=== PATIENT | male | born 1955 | race Caucasian/White ===

== ENCOUNTER 2016-11-18 08:08 | Emergency (ER) | payer SELFPAY ==
[~2016-11-18] VITALS: Ht 177.8 cm; Wt 79.3 kg
[~2016-11-18 08:08] MED LIST: MOBI15TA PO
[2016-11-18 08:12] VITALS: BP 198/106; PULSE 75; RESP 18; TEMP 98; O2SAT 97
[2016-11-18] MEDS ORDERED: PRIL20TA2 PO (08:24)
--- NOTE | 2016-11-18 08:33 | PD ---
HPI Chief Complaint: Complaint Time Seen by Provider: 08:19 Travel History International Travel<30 days: No Contact w/Intl Traveler<30days: No Traveled to known affect area: No History of Present Illness HPI This 61-year-old male complaining of trouble urinating. He says been having trouble for about 3 months. He has to urinate frequently and frequently has small amounts. He has to strain to urinate. He has to strain so much that sometimes he was not a bowel movement at the same time and he has had occasional bleeding from his rectum and he does have some external hemorrhoids. He has never seen a urologist. He is not aware of fever or chills. Is not aware of any kidney trouble. He has to get up at night frequently to urinate PFSH Past Medical History Medical History: Denies Significant Hx Diminished Hearing: No Past Surgical History Appendectomy: Yes Social History Alcohol Use: Yes (daily) Tobacco Use: Yes (1 ppd) Substance Use: Yes (ETOH) Allergies-Medications (Allergen,Severity, Reaction): Coded Allergies: No Known Allergies (Unverified , 11/18/16) Reported Meds & Prescriptions Reported Meds & Active Scripts Active Flomax (Tamsulosin HCl) 0.4 Mg Cap 0.4 Mg PO HS 30 Days Reported Prilosec (Omeprazole Magnesium) 20 Mg Tab 1 Cap PO DAILY Review of Systems General / Constitutional: No: Fever, Chills Eyes: No: Diploplia, Blurred Vision HENT: No: Headaches, Vertigo Cardiovascular: No: Chest Pain or Discomfort, Palpitations Respiratory: No: Cough, Shortness of Breath Gastrointestinal: No: Nausea, Vomiting Genitourinary: Positive: Urgency, Frequency, Dysuria, Nocturia, Decreased Urinary Output, Hesitancy, Dribbling, No: Hematuria Skin: No Rash, No Itching Neurologic: No: Weakness Psychiatric: No: Anxiety Endocrine: No: Heat Intolerance Physical Exam Narrative GENERAL: Well-developed male SKIN: Focused skin assessment warm/dry. HEAD: Atraumatic. Normocephalic. EYES: Pupils equal and round. No scleral icterus. No injection or drainage. ENT: No nasal bleeding or discharge. Mucous membranes pink and moist. NECK: Trachea midline. No JVD. CARDIOVASCULAR: Regular rate and rhythm. No murmur appreciated. RESPIRATORY: No accessory muscle use. Clear to auscultation. Breath sounds equal bilaterally. GASTROINTESTINAL: Abdomen soft, non-tender, nondistended. Hepatic and splenic margins not palpable. There is some suprapubic tenderness Rectal exam there are some external hemorrhoids which are not bleeding. His prostate is quite enlarged and is firm. MUSCULOSKELETAL: No obvious deformities. No clubbing. No cyanosis. No edema. NEUROLOGICAL: Awake and alert. No obvious cranial nerve deficits. Motor grossly within normal limits. Normal speech. PSYCHIATRIC: Appropriate mood and affect; insight and judgment normal. Data Data Last Documented VS Vital Signs Date Time Temp Pulse Resp B/P (MAP) Pulse Ox O2 Delivery O2 Flow Rate FiO2 11/18/16 09:34 11/18/16 09:20 74 18 98 Room Air 11/18/16 08:12 98.0 Orders Orders Complete Blood Count With Diff (11/18/16 08:28) Basic Metabolic Panel (Bmp) (11/18/16 08:28) Urinalysis - C+S If Indicated (11/18/16 08:28) Bladder Scan PRN (11/18/16 08:28) Mandatory Outpatient Referral (11/18/16 09:20) Labs Laboratory Tests Test 11/18/16 08:50 11/18/16 09:00 White Blood Count 7.8 TH/MM3 Red Blood Count 4.64 MIL/MM3 Hemoglobin 14.5 GM/DL Hematocrit 44.0 % Mean Corpuscular Volume 94.9 FL Mean Corpuscular Hemoglobin 31.2 PG Mean Corpuscular Hemoglobin Concent 32.9 % Red Cell Distribution Width 12.9 % Platelet Count 297 TH/MM3 Mean Platelet Volume 8.8 FL Neutrophils (%) (Auto) 69.1 % Lymphocytes (%) (Auto) 19.7 % Monocytes (%) (Auto) 8.4 % Eosinophils (%) (Auto) 1.6 % Basophils (%) (Auto) 1.2 % Neutrophils # (Auto) 5.4 TH/MM3 Lymphocytes # (Auto) 1.5 TH/MM3 Monocytes # (Auto) 0.7 TH/MM3 Eosinophils # (Auto) 0.1 TH/MM3 Basophils # (Auto) 0.1 TH/MM3 CBC Comment DIFF FINAL Differential Comment Blood Urea Nitrogen 13 MG/DL Creatinine 0.94 MG/DL Random Glucose 112 MG/DL Calcium Level 8.7 MG/DL Sodium Level 141 MEQ/L Potassium Level 3.6 MEQ/L Chloride Level 106 MEQ/L Carbon Dioxide Level 29.1 MEQ/L Anion Gap 6 MEQ/L Estimat Glomerular Filtration Rate 81 ML/MIN Urine Collection Type CLEAN CATCH Urine Color YELLOW Urine Turbidity CLEAR Urine pH 6.5 Urine Specific [place] 1.005 Urine Protein NEG mg/dL Urine Glucose (UA) NEG mg/dL Urine Ketones NEG mg/dL Urine Occult Blood NEG Urine Nitrite NEG Urine Bilirubin NEG Urine Leukocyte Esterase NEG Urine WBC 0-2 /hpf Microscopic Urinalysis Comment CULT NOT INDICATED MDM Medical Decision Making Medical Screen Exam Complete: Yes Emergency Medical Condition: Yes Medical Record Reviewed: Yes Differential Diagnosis Differential includes BPH, UTI, prostate cancer, urinary retention Narrative Course Bladder scan shows that the bladder is distended and about 850 mls after urination. I spent some time explaining to patient that we should insert a catheter to drain his bladder and he is refusing. Blood work shows good kidney function. His urine is not infected. This is most likely BPH to bladder cancer cannot be excluded. I have explained this to the patient and stressed the importance of follow-up. He'll be started on Flomax and he will be released. He has been instructed to return if unable to urinate for catheter at that time Diagnosis Primary Impression: Urinary retention Additional Impression: Prostatic enlargement Scripts Tamsulosin (Flomax) 0.4 Mg Cap 0.4 MG PO HS for Manage Prostate Problems for 30 Days, #30 CAP 0 Refills Prov: Juan M Russ MD 11/18/16 Disposition: 01 DISCHARGE HOME Condition: Stable Juan M Russ MD Nov 18, 2016 08:33
[2016-11-18 09:00] LABS: AUTOMATED NEUTROPHIL # 5.4 TH/MM3 (1.8-7.7); BASOPHIL # 0.1 TH/MM3 (0-0.2); BASOPHIL % 1.2 % (0.0-2.0); EOSINOPHIL # 0.1 TH/MM3 (0-0.4); EOSINOPHIL % 1.6 % (0.0-4.0); HEMO FLAGS DIFF FINAL; LYMPH % 19.7 % (9.0-44.0); LYMPHOCYTE # 1.5 TH/MM3 (1.0-4.8); MEAN CELL VOLUME 94.9 FL (80.0-100.0); MEAN CORPUSCULAR HEMOGLOBIN 31.2 PG (27.0-34.0); MEAN CORPUSCULAR HGB CONC 32.9 % (32.0-36.0); MONO % 8.4 % (0.0-8.0); NEUT % 69.1 % (16.0-70.0); PLATELET COUNT 297 TH/MM3 (150-450); RED BLOOD COUNT 4.64 MIL/MM3 (4.50-5.90); RED CELL DISTRIBUTION WIDTH 12.9 % (11.6-17.2); WHITE BLOOD COUNT 7.8 TH/MM3 (4.0-11.0)
[2016-11-18 09:07] LABS: POTASSIUM 3.6 MEQ/L (3.5-5.1)
[2016-11-18 09:09] LABS: BLOOD, URINE NEG (NEG); GLUCOSE,URINE NEG (NEG); KETONE, URINE NEG (NEG); NITRITE,URINE NEG (NEG); PH, URINE 6.5 (5.0-8.5)
[2016-11-18 09:12] LABS: BICARBONATE 29.1 MEQ/L (21.0-32.0)
[2016-11-18 09:14] LABS: METHOD OF COLLECTION CLEAN CATCH; URINE COLOR YELLOW (YELLW/STRAW)
[2016-11-18 09:15] LABS: COMMENT (UR) CULT NOT INDICATED; CULTURE IF INDICATED CULT NOT INDICATED; WBC, URINE 0-2 /hpf (0-5)
[2016-11-18] MEDS ORDERED: TAMS5CAP PO (09:19)
[2016-11-18 09:20] VITALS: BP 184/99; PULSE 74; RESP 18; O2SAT 98
== END 2016-11-18 09:35 | disposition home or self-care (01) ==
LOC: PHED 08:08
DX: R33.9 Retention of urine, unspecified (principal); N40.1 Benign prostatic hyperplasia with lower urinary tract symptoms; F17.210 Nicotine dependence, cigarettes, uncomplicated; K64.4 Residual hemorrhoidal skin tags
CPT/HCPCS: 51798; 80048; 81001; 85025

== ENCOUNTER 2016-12-12 16:25 | Inpatient (IN) | payer SELFPAY ==
[~2016-12-12] VITALS: Ht 177.8 cm; Wt 79.7 kg
[~2016-12-12 16:25] MED LIST changes: -MOBI15TA PO; +PRIL20TA2 PO; +TAMS5CAP PO
[2016-12-12 16:33] VITALS: BP 218/101; PULSE 77; RESP 16; TEMP 98.6; O2SAT 99
[2016-12-12] MEDS ORDERED: SODIUM CHLORIDE 0.9% FLUSH 10 ML FLUSH IV FLUSH PRN ×3 (16:45→23:15)
[2016-12-12 16:55] VITALS: O2SAT 99
--- NOTE | 2016-12-12 17:03 | PD ---
HPI Chief Complaint: Edema Time Seen by Provider: 16:45 Travel History International Travel<30 days: No Contact w/Intl Traveler<30days: No Traveled to known affect area: No History of Present Illness HPI 61-year-old male here for evaluation of bilateral lower extremity edema, scrotal and penile swelling. The patient reports that he was here earlier this month for urinary retention and was told that he has an enlarged prostate. He was advised that a Hogn catheter should be placed at that time, however he refused. He was given Flomax and reports that he is having no issues with urinating. He reports that since then he has noted scrotal and penile swelling as well as bilateral lower extremity edema. Symptoms seem to be worsening at times and then improving at times. He denies scrotal pain. He denies chest pain or dyspnea. No history of cardiopulmonary disease or CHF. He does admit to drinking a moderate amount of alcohol daily, and has done so since his 20s. PFSH Past Medical History Hx Anticoagulant Therapy: No Diabetes: No Diminished Hearing: No Past Surgical History Appendectomy: Yes Social History Alcohol Use: Yes (daily) Tobacco Use: Yes (1 ppd) Substance Use: Yes (ETOH) Allergies-Medications (Allergen,Severity, Reaction): Coded Allergies: No Known Allergies (Unverified Allergy, Unknown, 12/12/16) Reported Meds & Prescriptions Reported Meds & Active Scripts Active Flomax (Tamsulosin HCl) 0.4 Mg Cap 0.4 Mg PO HS 30 Days Reported Prilosec (Omeprazole Magnesium) 20 Mg Tab 1 Cap PO DAILY Review of Systems Except as stated in HPI: all other systems reviewed are Neg Physical Exam Narrative GENERAL: Well-developed, well-nourished, comfortable, no apparent distress. SKIN: Focused skin assessment warm/dry. HEAD: Atraumatic. Normocephalic. EYES: Pupils equal and round. Mild scleral icterus. No injection or drainage. ENT: No nasal bleeding or discharge. Mucous membranes pink and moist. NECK: Trachea midline. No JVD. CARDIOVASCULAR: Regular rate and rhythm. No murmur appreciated. RESPIRATORY: No accessory muscle use. Clear to auscultation. Breath sounds equal bilaterally. GASTROINTESTINAL: Abdomen soft, non-tender, nondistended. : Moderate scrotal and penile edema without masses, without tenderness, without skin color changes, without obvious hernia. MUSCULOSKELETAL: No obvious deformities. No clubbing. No cyanosis. Mild bilateral lower extremity edema from foot to thigh. NEUROLOGICAL: Awake and alert. No obvious cranial nerve deficits. Motor grossly within normal limits. Normal speech. PSYCHIATRIC: Appropriate mood and affect; insight and judgment normal. Data Data Last Documented VS Vital Signs Date Time Temp Pulse Resp B/P (MAP) Pulse Ox O2 Delivery O2 Flow Rate FiO2 12/12/16 21:05 100.8 83 20 189/92 (124) 95 12/12/16 16:55 Room Air Orders Orders Complete Blood Count With Diff (12/12/16 16:45) Comprehensive Metabolic Panel (12/12/16 16:45) Lipase (12/12/16 16:45) Prothrombin Time / Inr (Pt) (12/12/16 16:45) Act Partial Throm Time (Ptt) (12/12/16 16:45) Urinalysis - C+S If Indicated (12/12/16 16:45) Iv Access Insert/Monitor (12/12/16 16:45) Ecg Monitoring (12/12/16 16:45) Oximetry (12/12/16 16:45) Sodium Chloride 0.9% Flush (Ns Flush) (12/12/16 16:45) B-Type Natriuretic Peptide (12/12/16 16:45) Ct Abd/Pel W/O Iv Contrast (12/12/16 ) Potassium Chloride (Kcl) (12/12/16 18:15) Spironolactone (Aldactone) (12/12/16 18:15) Urinary Catheter Insert/Apply (12/12/16 20:00) Lidocaine 2% Jelly (Xylocaine 2% Jelly) (12/12/16 20:30) Morphine Inj (Morphine Inj) (12/12/16 20:30) Morphine Inj (Morphine Inj) (12/12/16 20:30) Prostate Specific Antigen (12/12/16 20:47) Consult Medical Oncology (12/12/16 ) Invasive Rad Dept Consult (12/12/16 21:10) Admit Order (Ed Use Only) (12/12/16 21:11) Labs Laboratory Tests Test 12/12/16 16:54 12/12/16 17:20 12/12/16 20:50 White Blood Count 8.9 TH/MM3 Red Blood Count 4.27 MIL/MM3 Hemoglobin 13.4 GM/DL Hematocrit 40.3 % Mean Corpuscular Volume 94.2 FL Mean Corpuscular Hemoglobin 31.3 PG Mean Corpuscular Hemoglobin Concent 33.3 % Red Cell Distribution Width 12.9 % Platelet Count 223 TH/MM3 Mean Platelet Volume 9.0 FL Neutrophils (%) (Auto) 73.0 % Lymphocytes (%) (Auto) 17.3 % Monocytes (%) (Auto) 7.9 % Eosinophils (%) (Auto) 0.9 % Basophils (%) (Auto) 0.9 % Neutrophils # (Auto) 6.5 TH/MM3 Lymphocytes # (Auto) 1.5 TH/MM3 Monocytes # (Auto) 0.7 TH/MM3 Eosinophils # (Auto) 0.1 TH/MM3 Basophils # (Auto) 0.1 TH/MM3 CBC Comment DIFF FINAL Differential Comment Prothrombin Time 10.5 SEC Prothromb Time International Ratio 1.0 RATIO Activated Partial Thromboplast Time 27.0 SEC Blood Urea Nitrogen 17 MG/DL Creatinine 1.50 MG/DL Random Glucose 90 MG/DL Total Protein 7.8 GM/DL Albumin 3.4 GM/DL Calcium Level 8.8 MG/DL Alkaline Phosphatase 104 U/L Aspartate Amino Transf (AST/SGOT) 23 U/L Alanine Aminotransferase (ALT/SGPT) 23 U/L Total Bilirubin 0.6 MG/DL Sodium Level 141 MEQ/L Potassium Level 2.9 MEQ/L Chloride Level 104 MEQ/L Carbon Dioxide Level 28.0 MEQ/L Anion Gap 9 MEQ/L Estimat Glomerular Filtration Rate 47 ML/MIN B-Type Natriuretic Peptide 182 PG/ML Lipase 129 U/L Urine Color YELLOW Urine Turbidity CLEAR Urine pH 6.0 Urine Specific [place] 1.005 Urine Protein NEG mg/dL Urine Glucose (UA) NEG mg/dL Urine Ketones NEG mg/dL Urine Occult Blood LARGE Urine Nitrite NEG Urine Bilirubin NEG Urine Leukocyte Esterase NEG Urine RBC 0-3 /hpf Urine WBC 0-2 /hpf Urine Squamous Epithelial Cells 0-5 /hpf Microscopic Urinalysis Comment CULT NOT INDICATED MDM Medical Decision Making Medical Screen Exam Complete: Yes Emergency Medical Condition: Yes Medical Record Reviewed: Yes Differential Diagnosis Bilateral lower extremity edema, scrotal edema, hypoalbuminemia, cirrhosis, hepatorenal syndrome, renal insufficiency, fluid retention, CHF unlikely, DVT unlikely, Fourniere's gangrene unlikely, orchitis unlikely Narrative Course Initial vital signs show heart rate 77, blood pressure 218/101, pulse ox 99% on room air, oral temp of 98.6F. CBC is unremarkable. CMP is remarkable for potassium 2.9, creatinine 1.5, GFR 47 which is slightly worse than his baseline, otherwise unremarkable. Lipase is 129. BNP is 182. UA shows large occult blood, otherwise essentially unremarkable, not suggestive of UTI. CT abd/pelvis: CONCLUSION: 1. Retroperitoneal and bilateral external iliac chain adenopathy of concern for metastatic adenopathy versus lymphoma. 2. Moderate bilateral hydronephrosis. 3. Large scrotum with diffuse edema and appearance hydroceles. 4. Nonspecific bowel gas pattern which may represent an ileus. 5. Enlarged prostate gland. The urinary bladder is the upper limits of normal in size. 6. Moderate diverticulosis. Nurse was unable to place a Hong catheter, so I was asked to do this. I placed a 16 [place] coud catheter. After catheter placement, patient put out about 1500 cc of clear urine within 5 minutes. Case discussed with on-call oncologist Dr. Maciel who recommends that I order a PSA and have the patient admitted for biopsy of one of the lymph nodes. Patient was made aware of all findings and plan for admission. Case discussed with hospitalist Dr. Patel who will admit the patient to his service. Procedures Procedure Narrative Hong catheter placement: 2% lidocaine jelly was injected into the urethra for local anesthesia. Under sterile technique a 16 [place] coud catheter was placed. The patient experienced some discomfort with the procedure, however there were no complications. There was return of 1500 cc of clear urine within 5 minutes of catheter placement. Diagnosis Primary Impression: Obstructive uropathy Additional Impressions: Enlarged prostate Lymphadenopathy Scrotal edema Rakesh Castro MD Dec 12, 2016 17:03
[2016-12-12 17:25] LABS: AUTOMATED NEUTROPHIL # 6.5 TH/MM3 (1.8-7.7); BASOPHIL # 0.1 TH/MM3 (0-0.2); BASOPHIL % 0.9 % (0.0-2.0); EOSINOPHIL # 0.1 TH/MM3 (0-0.4); EOSINOPHIL % 0.9 % (0.0-4.0); HEMATOCRIT 40.3 % (39.0-51.0); HEMOGLOBIN 13.4 GM/DL (13.0-17.0); LYMPH % 17.3 % (9.0-44.0); LYMPHOCYTE # 1.5 TH/MM3 (1.0-4.8); MEAN CELL VOLUME 94.2 FL (80.0-100.0); MEAN CORPUSCULAR HEMOGLOBIN 31.3 PG (27.0-34.0); MEAN CORPUSCULAR HGB CONC 33.3 % (32.0-36.0); MONO % 7.9 % (0.0-8.0); MONOCYTE # 0.7 TH/MM3 (0-0.9); PLATELET COUNT 223 TH/MM3 (150-450); RED BLOOD COUNT 4.27 MIL/MM3 (4.50-5.90); RED CELL DISTRIBUTION WIDTH 12.9 % (11.6-17.2); WHITE BLOOD COUNT 8.9 TH/MM3 (4.0-11.0)
[2016-12-12 17:32] LABS: BILIRUBIN, URINE NEG (NEG); BLOOD, URINE LARGE (NEG); GLUCOSE,URINE NEG (NEG); KETONE, URINE NEG (NEG); NITRITE,URINE NEG (NEG); URINE LEUKOCYTE ESTERASE NEG (NEG)
[2016-12-12 17:35] LABS: URINE COLOR YELLOW (YELLW/STRAW)
[2016-12-12 17:35] LABS: PROTHROMBIN TIME - PATIENT 10.5 SEC (9.8-11.6)
[2016-12-12 17:36] LABS: RBC, URINE 0-3 /hpf (0-3); SQUAMOUS EPITHELIAL CELL URINE 0-5 /hpf (0-5); WBC, URINE 0-2 /hpf (0-5)
[2016-12-12 17:43] LABS: ALBUMIN 3.4 GM/DL (3.4-5.0); ALKALINE PHOSPHATASE 104 U/L (45-117); ALT (GPT) 23 U/L (12-78); AST (GOT) 23 U/L (15-37); BLOOD UREA NITROGEN 17 MG/DL (7-18); CALCIUM 8.8 MG/DL (8.5-10.1); CHLORIDE 104 MEQ/L (98-107); GLOMERULAR FILTRATION RATE 47 ML/MIN (>89); GLUCOSE,RANDOM 90 MG/DL (74-106); LIPASE 129 U/L (73-393); SODIUM (NA) 141 MEQ/L (136-145); TOTAL BILIRUBIN ADULT 0.6 MG/DL (0.2-1.0); TOTAL PROTEIN 7.8 GM/DL (6.4-8.2)
[2016-12-12] MEDS ORDERED: SPIRONOLACTONE 25 MG TAB PO ONE (18:15)
[2016-12-12] MEDS ORDERED: SPIRONOLACTONE 50 MG TAB PO ONE (18:15)
[2016-12-12] MEDS ORDERED: POTASSIUM CHLORIDE 20 MEQ CONTROLLED RELEASE TAB PO ONE (18:15)
[2016-12-12 19:33] VITALS: BP 189/98; PULSE 82; RESP 20; TEMP 100.8; O2SAT 94
--- NOTE | 2016-12-12 19:53 | RADRPT ---
EXAM DATE/TIME: 12/12/2016 19:06 [facility] COMPARISON: No previous studies available for comparison. INDICATIONS : Abdominal pain with generalized swelling. ORAL CONTRAST: No oral contrast ingested. RADIATION DOSE: 11.80 CTDIvol (mGy) MEDICAL HISTORY : Enlarged prostate. SURGICAL HISTORY : Appendectomy. ENCOUNTER: Initial ACUITY: 3 weeks PAIN SCALE: 6/10 LOCATION: abdomen TECHNIQUE: Volumetric scanning of the abdomen and pelvis was performed. Using automated exposure control and ad justment of the mA and/or kV according to patient size, radiation dose was kept as low as reasonably achievable to obtain optimal diagnostic quality images. DICOM format image data is available electro nically for review and comparison. FINDINGS: LOWER LUNGS: The visualized lower lungs are clear. LIVER: Homogeneous density without lesion. There is no dilation of the biliary tree. No calcified gall[place] es. SPLEEN: Normal size without lesion. PANCREAS: Within normal limits. KIDNEYS: There is moderate lateral hydronephrosis with dilatation of the calyces and collecting systems as wel l as the ureters down to the level of the bladder. No distinct filling defects or calculi. ADRENAL GLANDS: Within normal limits. VASCULAR: There is no aortic aneurysm. BOWEL/MESENTERY: There is a nonspecific bowel gas pattern with multiple loops of nondilated air-containing small bowel with multiple air-fluid levels. Gas and stool is noted segmentally within the colon. Multiple divert iculi greatest in the sigmoid colon. There is no free air or fluid. There is a small hiatal hernia. ABDOMINAL WALL: Within normal limits. RETROPERITONEUM: There is moderate retroperitoneal adenopathy with multiple lymph nodes in the periaortic region measu ring up to 2.2 cm in diameter. Extends down to the bifurcation. There is also adenopathy along both e xternal iliac chains. BLADDER: No wall thickening or mass. Urinary bladder is at the upper limits of normal in size. REPRODUCTIVE: Scrotum is enlarged with diffuse edema and apparent hydroceles. Prostate gland is diffusely enlarged and measures up to approximately 6 x 5.4 cm. INGUINAL: There is no lymphadenopathy or hernia. MUSCULOSKELETAL: Within normal limits for patient age. CONCLUSION: 1. Retroperitoneal and bilateral external iliac chain adenopathy of concern for metastatic adenopathy versus lymphoma. 2. Moderate bilateral hydronephrosis. 3. Large scrotum with diffuse edema and appearance hydroceles. 4. Nonspecific bowel gas pattern which may represent an ileus. 5. Enlarged prostate gland. The urinary bladder is the upper limits of normal in size. 6. Moderate diverticulosis. Paramjit Burrell MD on December 12, 2016 at 19:45 Board Certified Radiologist. This report was verified electronically.
[2016-12-12] MEDS ORDERED: MORPHINE SULFATE 8 MG/ML INJ IV PUSH ONE (20:30)
[2016-12-12] MEDS ORDERED: LIDOCAINE 2% JELLY 30 ML TUBE TOPICAL ONE (20:30)
[2016-12-12] MEDS ORDERED: MORPHINE SULFATE 4 MG/ML INJ IV PUSH ONE (20:30)
[2016-12-12 21:05] VITALS: BP 189/92; PULSE 83; RESP 20; TEMP 100.8; O2SAT 95
[2016-12-12] MEDS ORDERED: NALOXONE HCL 0.4 MG/ML AMP IV PUSH PRN (21:30)
[2016-12-12] MEDS ORDERED: LACTULOSE SYRUP 20 GM/30 ML CUP PO PRN (21:30)
[2016-12-12] MEDS ORDERED: SENNOSIDES 8.6 MG TAB PO PRN (21:30)
[2016-12-12] MEDS ORDERED: BISACODYL 10 MG SUPP RECTAL PRN (21:30)
[2016-12-12] MEDS ORDERED: ONDANSETRON HCL 4 MG/2 ML VIAL IVP PRN (21:30)
[2016-12-12] MEDS ORDERED: MAGNESIUM HYDROXIDE SUSP 30 ML CUP PO PRN (21:30)
[2016-12-12] MEDS: SODIUM CHLOR 0.45% 1000 ML INJ 1,000 ML IV SCH (22:02)
[2016-12-12 22:15] LABS: MAGNESIUM 2.8 MG/DL (1.5-2.5)
[2016-12-12 22:23] VITALS: BP 167/92; TEMP 100
[2016-12-12 22:30] VITALS: BP 177/109; PULSE 69; RESP 20; TEMP 97; O2SAT 98
[2016-12-12] MEDS ORDERED: LORazepam 2 MG TAB PO PRN (23:15)
[2016-12-12] MEDS ORDERED: cloNIDine HCL 0.1 MG TAB PO ONE (23:15)
[2016-12-12] MEDS ORDERED: LORazepam 2 MG/ML VIAL IV PUSH PRN ×4 (23:15)
[2016-12-12] MEDS ORDERED: FLUMAZENIL 0.5 MG/5 ML VIAL IV PUSH PRN (23:15)
[2016-12-13] MEDS ORDERED: BELLADONNA ALKALOIDS/OPIUM 60 MG SUPP RECTAL ONE ×2 (01:15→22:45)
[2016-12-13 04:00] VITALS: BP 158/92; PULSE 67; RESP 20; TEMP 98.5; O2SAT 95
[2016-12-13 06:35] LABS: CHLORIDE 106 MEQ/L (98-107); SODIUM (NA) 142 MEQ/L (136-145)
[2016-12-13 06:41] LABS: ALBUMIN 2.9 GM/DL (3.4-5.0); BICARBONATE 29.9 MEQ/L (21.0-32.0); BLOOD UREA NITROGEN 15 MG/DL (7-18); CALCIUM 8.3 MG/DL (8.5-10.1); GLUCOSE,RANDOM 99 MG/DL (74-106)
[2016-12-13 06:42] LABS: AUTOMATED NEUTROPHIL # 5.6 TH/MM3 (1.8-7.7); BASOPHIL % 0.6 % (0.0-2.0); EOSINOPHIL # 0.1 TH/MM3 (0-0.4); EOSINOPHIL % 1.4 % (0.0-4.0); HEMATOCRIT 38.9 % (39.0-51.0); HEMOGLOBIN 12.9 GM/DL (13.0-17.0); LYMPH % 17.2 % (9.0-44.0); LYMPHOCYTE # 1.3 TH/MM3 (1.0-4.8); MEAN CELL VOLUME 94.6 FL (80.0-100.0); MEAN CORPUSCULAR HEMOGLOBIN 31.5 PG (27.0-34.0); MEAN CORPUSCULAR HGB CONC 33.3 % (32.0-36.0); MONOCYTE # 0.7 TH/MM3 (0-0.9); NEUT % 71.8 % (16.0-70.0); PLATELET COUNT 226 TH/MM3 (150-450); RED BLOOD COUNT 4.11 MIL/MM3 (4.50-5.90); RED CELL DISTRIBUTION WIDTH 13.1 % (11.6-17.2); WHITE BLOOD COUNT 7.7 TH/MM3 (4.0-11.0)
[2016-12-13 06:44] LABS: ALT (GPT) 20 U/L (12-78); AST (GOT) 16 U/L (15-37); GLOMERULAR FILTRATION RATE 56 ML/MIN (>89)
[2016-12-13 06:46] LABS: TOTAL BILIRUBIN ADULT 0.8 MG/DL (0.2-1.0); TOTAL PROTEIN 6.7 GM/DL (6.4-8.2)
[2016-12-13 06:47] LABS: ALKALINE PHOSPHATASE 90 U/L (45-117)
[2016-12-13 07:50] VITALS: BP 178/95; PULSE 64; RESP 20; TEMP 97.6; O2SAT 94
[2016-12-13] MEDS ORDERED: SODIUM CHLORIDE 0.9% FLUSH 10 ML FLUSH IV FLUSH SCH (09:00)
[2016-12-13] MEDS: FOLIC ACID 1 MG TAB PO SCH (10:44)
[2016-12-13] MEDS: PANTOPRAZOLE SOD 20 MG DELAYED RELEASE TAB PO SCH (10:44)
[2016-12-13] MEDS: THIAMINE HCL 100 MG TAB PO SCH (10:44)
[2016-12-13] MEDS: MULTIVITAMINS/MINERALS THERAPEUTIC TAB PO SCH (10:44)
[2016-12-13] MEDS: SODIUM CHLORIDE 0.9% FLUSH 10 ML FLUSH IV FLUSH SCH ×2 (10:45→20:41)
[2016-12-13 11:50] VITALS: BP 189/93; PULSE 67; RESP 20; TEMP 98.7; O2SAT 93
[2016-12-13] MEDS ORDERED: POTASSIUM CHLORIDE 10 MEQ CONTROLLED RELEASE TAB PO ONE (12:15)
--- NOTE | 2016-12-13 12:21 | HHI.HP ---
[facility] Service [facility] Primary Care Physician No Primary Care Physician Admission Diagnosis obstructive uropathy, enlarged prostate, lymphadenopathy Diagnoses: Chief Complaint: Decreased urine output Travel History International Travel<30 Days: No Contact w/Intl Traveler <30 Da: No Traveled to Known Affected Are: No History of Present Illness This patient is a very pleasant 61-year-old gentleman with minimal past medical history is come to the hospital with 3 weeks of decreased urine output proceeded by 4 months of urinary frequency. He reports over the last 2 weeks his bladder has not emptied fully. He finally came to the emergency room with increased scrotal and penile swelling and discomfort. A catheter was placed in the emergency room and 1.5 L of urine was obtained. Patient has since developed hematuria. He did have CT abdomen pelvis done which did show some prostatic enlargement with pelvic lymphadenopathy concerning for malignancy. Reports no history of malignancy personally but his brother had some sort of cancer that he at age 47. He notes no fevers or chills. He has not lost any weight and he denies any joint or back pain. Patient been admitted to the hospital for further evaluation and treatment Review of Systems Constitutional: DENIES: Diaphoretic episodes, Fatigue, Fever, Weight gain, Weight loss, Chills, Dizziness, Change in appetite, Night Sweats Endocrine: DENIES: Heat/cold intolerance, Polydipsia, Polyuria, Polyphagia Eyes: DENIES: Blurred vision, Diplopia, Eye inflammation, Eye pain, Vision loss , Photosensitivity, Double Vision Ears, nose, mouth, throat: DENIES: Tinnitus, Hearing loss, Vertigo, Nasal discharge, Oral lesions, Throat pain, Hoarseness, Ear Pain, Running Nose, Epistaxis, Sinus Pain, Toothache, Odynophagia Respiratory: DENIES: Apneas, Cough, Snoring, Wheezing, Hemoptysis, Sputum production, Shortness of breath Cardiovascular: DENIES: Chest pain, Palpitations, Syncope, Dyspnea on Exertion , PND, Lower Extremity Edema, Orthopnea, Claudication Gastrointestinal: DENIES: Abdominal pain, Black stools, Bloody stools, Constipation, Diarrhea, Nausea, Vomiting, Difficulty Swallowing, Anorexia Genitourinary: COMPLAINS OF: Testicular Swelling, DENIES: Sexual dysfunction, Urinary frequency, Urinary incontinence, Urgency, Hematuria, Dysuria, Nocturia, Penile Discharge, Testicular Pain Musculoskeletal: DENIES: Joint pain, Muscle aches, Stiffness, Joint Swelling, Back pain, Neck pain Integumentary: DENIES: Abnormal pigmentation, Nail changes, Pruritus, Rash Hematologic/lymphatic: DENIES: Bruising, Lymphadenopathy Immunologic/allergic: DENIES: Eczema, Urticaria Psychiatric: DENIES: Anxiety, Confusion, Mood changes, Depression, Hallucinations, Agitation, Suicidal Ideation, Homicidal Ideation, Delusions Except as stated in HPI: all other systems reviewed are Neg Past Family Social History Past Medical History Denies Past Surgical History appendectomy Reported Medications Reviewed in the EMR, [id number] Prilosec Allergies: Coded Allergies: No Known Allergies (Unverified Allergy, Unknown, 12/12/16) Active Ordered Medications reviewed in the EMR Family History Mother has diabetes, father had a heart attack, brother had some sort of cancer and at age 47 Social History Patient smokes a half pack per day, drinks alcohol daily, works as a maintenance and utilities supervisor Physical Exam Vital Signs Vital Signs Date Time Temp Pulse Resp B/P (MAP) Pulse Ox O2 Delivery O2 Flow Rate FiO2 12/13/16 07:50 97.6 64 20 178/95 (122) 94 12/13/16 04:00 98.5 67 20 158/92 (114) 95 12/12/16 22:30 97.0 69 20 177/109 (131) 98 12/12/16 22:23 100.0 85 20 167/92 (117) 94 12/12/16 22:00 20 12/12/16 21:05 100.8 83 20 189/92 (124) 95 12/12/16 19:33 100.8 82 20 189/98 (128) 94 12/12/16 19:33 82 20 94 12/12/16 16:55 Room Air 12/12/16 16:55 99 Room Air 12/12/16 16:33 98.6 77 16 218/101 (140) 99 Physical Exam General scrotal and penile edema with gross hematuria and Hong GENERAL: This is a well-nourished, well-developed patient, in no apparent distress. SKIN: No rashes, ecchymoses or lesions. Cool and dry. HEAD: Atraumatic. Normocephalic. No temporal or scalp tenderness. EYES: Pupils equal round and reactive. Extraocular motions intact. No scleral icterus. No injection or drainage. ENT: Nose without bleeding, purulent drainage or septal hematoma. Throat without erythema, tonsillar hypertrophy or exudate. Uvula midline. Airway patent. NECK: Trachea midline. No JVD or lymphadenopathy. Supple, nontender, no meningeal signs. CARDIOVASCULAR: Regular rate and rhythm without murmurs, gallops, or rubs. RESPIRATORY: Clear to auscultation. Breath sounds equal bilaterally. No wheezes , rales, or rhonchi. GASTROINTESTINAL: Abdomen soft, non-tender, nondistended. No hepato-splenomegaly , or palpable masses. No guarding. MUSCULOSKELETAL: Extremities without clubbing, cyanosis, or edema. No joint tenderness, effusion, or edema noted. No calf tenderness. Negative Homans sign bilaterally. NEUROLOGICAL: Awake and alert. Cranial nerves II through XII intact. Motor and sensory grossly within normal limits. Five out of 5 muscle strength in all muscle groups. Normal speech. Laboratory Laboratory Tests Test 12/12/16 16:54 12/12/16 17:20 12/12/16 20:50 12/13/16 05:55 White Blood Count 8.9 7.7 Red Blood Count 4.27 4.11 Hemoglobin 13.4 12.9 Hematocrit 40.3 38.9 Mean Corpuscular Volume 94.2 94.6 Mean Corpuscular Hemoglobin 31.3 31.5 Mean Corpuscular Hemoglobin Concent 33.3 33.3 Red Cell Distribution Width 12.9 13.1 Platelet Count 223 226 Mean Platelet Volume 9.0 9.0 Neutrophils (%) (Auto) 73.0 71.8 Lymphocytes (%) (Auto) 17.3 17.2 Monocytes (%) (Auto) 7.9 9.0 Eosinophils (%) (Auto) 0.9 1.4 Basophils (%) (Auto) 0.9 0.6 Neutrophils # (Auto) 6.5 5.6 Lymphocytes # (Auto) 1.5 1.3 Monocytes # (Auto) 0.7 0.7 Eosinophils # (Auto) 0.1 0.1 Basophils # (Auto) 0.1 0.0 CBC Comment DIFF FINAL DIFF FINAL Differential Comment Prothrombin Time 10.5 Prothromb Time International Ratio 1.0 Activated Partial Thromboplast Time 27.0 Blood Urea Nitrogen 17 15 Creatinine 1.50 1.30 Random Glucose 90 99 Total Protein 7.8 6.7 Albumin 3.4 2.9 Calcium Level 8.8 8.3 Magnesium Level 2.8 Alkaline Phosphatase 104 90 Aspartate Amino Transf (AST/SGOT) 23 16 Alanine Aminotransferase (ALT/SGPT) 23 20 Total Bilirubin 0.6 0.8 Sodium Level 141 142 Potassium Level 2.9 3.3 Chloride Level 104 106 Carbon Dioxide Level 28.0 29.9 Anion Gap 9 6 Estimat Glomerular Filtration Rate 47 56 B-Type Natriuretic Peptide 182 Lipase 129 Urine Color YELLOW Urine Turbidity CLEAR Urine pH 6.0 Urine Specific [place] 1.005 Urine Protein NEG Urine Glucose (UA) NEG Urine Ketones NEG Urine Occult Blood LARGE Urine Nitrite NEG Urine Bilirubin NEG Urine Leukocyte Esterase NEG Urine RBC 0-3 Urine WBC 0-2 Urine Squamous Epithelial Cells 0-5 Microscopic Urinalysis Comment CULT NOT INDICATED Prostate Specific Antigen 339.10 Result Diagram: 12/13/16 0555 12/13/16 0555 Imaging Last Impressions Abdomen/Pelvis CT 12/12/16 0000 Signed Impressions: Service Date/Time: Monday, December 12, 2016 19:06 - CONCLUSION: 1. Retroperitoneal and bilateral external iliac chain adenopathy of concern for metastatic adenopathy versus lymphoma. 2. Moderate bilateral hydronephrosis. 3. Large scrotum with diffuse edema and appearance hydroceles. 4. Nonspecific bowel gas pattern which may represent an ileus. 5. Enlarged prostate gland. The urinary bladder is the upper limits of normal in size. 6. Moderate diverticulosis. MD Jaime Couchi VTE Risk Assessment Caprini VTE Risk Assessment: Mod/High Risk (score >= 2) VTE Pharm Contraindication: Active bleeding (hematuria) Caprini Risk Assessment Model Point Value = 1 Point Value = 2 Point Value = 3 Point Value = 5 Age 41-60 Minor surgery BMI > 25 kg/m2 Swollen legs Varicose veins or History of unexplained or recurrent spontaneous Oral contraceptives or hormone replacement Sepsis (< 1 month) Serious lung disease, including pneumonia (< 1 month) Abnormal pulmonary function Acute myocardial infarction Congestive heart failure (< 1 month) History of inflammatory bowel disease Medical patient at bed rest Age 61-74 Arthroscopic surgery Major open surgery (> 45 min) Laparoscopic surgery (> 45 min) Malignancy Confined to bed (> 72 hours) Immobilizing plaster cast Central venous access Age >= 75 History of VTE Family history of VTE Factor V Leiden Prothrombin [id number] Lupus anticoagulant Anticardiolipin antibodies Elevated serum homocysteine Heparin-induced thrombocytopenia Other congenital or acquired thrombophilia Stroke (< 1 month) Elective arthroplasty Hip, pelvis, or leg fracture Acute spinal cord injury (< 1 month) Prophylaxis Regimen Total Risk Factor Score Risk Level Prophylaxis Regimen 0-1 Low Early ambulation 2 Moderate Order ONE of the following: *Sequential Compression Device (SCD) *Heparin 5000 units SQ BID 3-4 Higher Order ONE of the following medications: *Heparin 5000 units SQ TID *Enoxaparin/Lovenox 40 mg SQ daily (WT < 150 kg, CrCl > 30 mL/min) *Enoxaparin/Lovenox 30 mg SQ daily (WT < 150 kg, CrCl > 10-29 mL/min) *Enoxaparin/Lovenox 30 mg SQ BID (WT < 150 kg, CrCl > 30 mL/min) AND/OR *Sequential Compression Device (SCD) 5 or more Highest Order ONE of the following medications: *Heparin 5000 units SQ TID (Preferred with Epidurals) *Enoxaparin/Lovenox 40 mg SQ daily (WT < 150 kg, CrCl > 30 mL/min) *Enoxaparin/Lovenox 30 mg SQ daily (WT < 150 kg, CrCl > 10-29 mL/min) *Enoxaparin/Lovenox 30 mg SQ BID (WT < 150 kg, CrCl > 30 mL/min) AND *Sequential Compression Device (SCD) Assessment and Plan Problem List: (1) Obstructive uropathy ICD Code: N13.9 - Obstructive and reflux uropathy, unspecified Status: Acute Plan: likely due to prostatic malignancy. Patient has a PSA of 339. Continue with Hong catheter Urology to follow Lymph node biopsy pending Continue empiric IV ciprofloxacin Continue IV saline (2) Hypokalemia ICD Code: E87.6 - Hypokalemia Plan: Replace and follow trend, check magnesium Physician Certification 2 Midnight Certification Type: Admission for Inpatient Services Order for Inpatient Services The services are ordered in accordance with Medicare regulations or non- Medicare payer requirements, as applicable. In the case of services not specified as inpatient-only, they are appropriately provided as inpatient services in accordance with the 2-midnight benchmark. Estimated LOS (days): 3 3 days is the estimated time the patient will need to remain in the hospital, assuming treatment plan goals are met and no additional complications. Post-Hospital Plan: Lucy De La Rosa MD Dec 13, 2016 12:21
[2016-12-13] MEDS: SODIUM CHLOR 0.45% 1000 ML INJ 1,000 ML IV SCH ×2 (13:12→13:46)
[2016-12-13] MEDS: CIPROFLOXACIN 400 MG PREMIX 200 ML IV SCH ×2 (13:13→23:48)
[2016-12-13 15:30] VITALS: BP 176/91; PULSE 80; RESP 20; TEMP 98.6; O2SAT 96
--- NOTE | 2016-12-13 17:15 | PD.CONS ---
HPI Service Urology Consult Requested By Reason for Consult Obstructive Uropathy Primary Care Physician No Primary Care Physician Diagnosis: (1) Acute renal failure (ARF) ICD Code: N17.9 - Acute kidney failure, unspecified (2) Hydronephrosis ICD Code: N13.30 - Unspecified hydronephrosis (3) Acute urinary retention ICD Code: R33.8 - Other retention of urine (4) Elevated PSA, greater than or equal to 20 ng/ml ICD Code: R97.20 - Elevated prostate specific antigen [PSA] (5) Enlarged prostate ICD Code: N40.0 - Benign prostatic hyperplasia without lower urinary tract symptoms (6) Lymphadenopathy ICD Code: R59.1 - Generalized enlarged lymph nodes (7) Scrotal edema ICD Code: N50.89 - Other specified disorders of the male genital organs History of Present Illness 61-year-old gentleman with no significant past medical history presented to the hospital with 3 weeks of decreased urine output, worsening urinary frequency , penile scrotal edema, and feeling of incomplete emptying. In the ER, a catheter was placed for over 1L of urine after several attempts. He immediately felt better. He subsequently developed hematuria. A CT A/P without contrast showed bilateral hydroureteronephrosis, enlarged prostate, distended bladder and pelvic lymphadenopathy. He was admitted for further evaluation. He came to ER about 1 month ago with difficulty voiding, penile edema. He was given medication to help but he did not take the pills. Denies h/o UTIs or kidney stones. Denies weight loss or any new or unusual bone or back pain. Denies abdominal or flank pain. He had a PSA checked and it came back 330. Review of Systems Genitourinary: COMPLAINS OF: Hematuria, Testicular Swelling Except as stated in HPI: all other systems reviewed are Neg Past Family Social History Past Medical History BPH Past Surgical History circumcision Reported Medications none Allergies: Coded Allergies: No Known Allergies (Unverified Allergy, Unknown, 12/12/16) Family History Denies malignancies, urolithiasis Social History + tobacco, 1 ppd; occasional alcohol, denies illicit drugs Physical Exam Vital Signs Date Time Temp Pulse Resp B/P (MAP) Pulse Ox O2 Delivery O2 Flow Rate FiO2 12/13/16 15:30 98.6 80 20 176/91 (119) 96 12/13/16 11:50 98.7 67 20 189/93 (125) 93 12/13/16 07:50 97.6 64 20 178/95 (122) 94 12/13/16 04:00 98.5 67 20 158/92 (114) 95 12/12/16 22:30 97.0 69 20 177/109 (131) 98 12/12/16 22:23 100.0 85 20 167/92 (117) 94 12/12/16 22:00 20 12/12/16 21:05 100.8 83 20 189/92 (124) 95 12/12/16 19:33 100.8 82 20 189/98 (128) 94 12/12/16 19:33 82 20 94 Physical Exam GENERAL: This is a well-nourished, well-developed patient, in no apparent distress. SKIN: No rashes, ecchymoses or lesions. Cool and dry. HEAD: Atraumatic. Normocephalic. No temporal or scalp tenderness. EYES: Pupils equal round and reactive. Extraocular motions intact. No scleral icterus. No injection or drainage. ENT: Nose without bleeding, purulent drainage or septal hematoma. Throat without erythema, tonsillar hypertrophy or exudate. Uvula midline. Airway patent. NECK: Trachea midline. No JVD or lymphadenopathy. Supple, nontender, no meningeal signs. CARDIOVASCULAR: Regular rate and rhythm without murmurs, gallops, or rubs. RESPIRATORY: Clear to auscultation. Breath sounds equal bilaterally. No wheezes , rales, or rhonchi. GASTROINTESTINAL: Abdomen soft, non-tender, nondistended. No hepato-splenomegaly , or palpable masses. No guarding. GENITOURINARY: penis circumcised, edematous but soft, testes normal without mass ; prostate enlarged 3+, diffusely firm MUSCULOSKELETAL: Extremities without clubbing, cyanosis, or edema. No joint tenderness, effusion, or edema noted. No calf tenderness. Negative Homans sign bilaterally. NEUROLOGICAL: Awake and alert. Cranial nerves II through XII intact. Motor and sensory grossly within normal limits. Five out of 5 muscle strength in all muscle groups. Normal speech. Lab results reviewed: Yes Laboratory Tests Test 12/12/16 17:20 12/12/16 20:50 12/13/16 05:55 Urine Color YELLOW Urine Turbidity CLEAR Urine pH 6.0 Urine Specific [place] 1.005 Urine Protein NEG Urine Glucose (UA) NEG Urine Ketones NEG Urine Occult Blood LARGE Urine Nitrite NEG Urine Bilirubin NEG Urine Leukocyte Esterase NEG Urine RBC 0-3 Urine WBC 0-2 Urine Squamous Epithelial Cells 0-5 Microscopic Urinalysis Comment CULT NOT INDICATED Prostate Specific Antigen 339.10 White Blood Count 7.7 Red Blood Count 4.11 Hemoglobin 12.9 Hematocrit 38.9 Mean Corpuscular Volume 94.6 Mean Corpuscular Hemoglobin 31.5 Mean Corpuscular Hemoglobin Concent 33.3 Red Cell Distribution Width 13.1 Platelet Count 226 Mean Platelet Volume 9.0 Neutrophils (%) (Auto) 71.8 Lymphocytes (%) (Auto) 17.2 Monocytes (%) (Auto) 9.0 Eosinophils (%) (Auto) 1.4 Basophils (%) (Auto) 0.6 Neutrophils # (Auto) 5.6 Lymphocytes # (Auto) 1.3 Monocytes # (Auto) 0.7 Eosinophils # (Auto) 0.1 Basophils # (Auto) 0.0 CBC Comment DIFF FINAL Differential Comment Blood Urea Nitrogen 15 Creatinine 1.30 Random Glucose 99 Total Protein 6.7 Albumin 2.9 Calcium Level 8.3 Alkaline Phosphatase 90 Aspartate Amino Transf (AST/SGOT) 16 Alanine Aminotransferase (ALT/SGPT) 20 Total Bilirubin 0.8 Sodium Level 142 Potassium Level 3.3 Chloride Level 106 Carbon Dioxide Level 29.9 Anion Gap 6 Estimat Glomerular Filtration Rate 56 Result Diagram: 12/13/16 0555 12/13/16 0555 Personally reviewed images: Yes (bilateral hydroureteronephrosis with distended bladder; pelvic lymphadenopathy) Imaging Last Impressions Abdomen/Pelvis CT 12/12/16 0000 Signed Impressions: Service Date/Time: Monday, December 12, 2016 19:06 - CONCLUSION: 1. Retroperitoneal and bilateral external iliac chain adenopathy of concern for metastatic adenopathy versus lymphoma. 2. Moderate bilateral hydronephrosis. 3. Large scrotum with diffuse edema and appearance hydroceles. 4. Nonspecific bowel gas pattern which may represent an ileus. 5. Enlarged prostate gland. The urinary bladder is the upper limits of normal in size. 6. Moderate diverticulosis. Paramjit Burrell MD Assessment and Plan Problem List: (1) Elevated PSA, greater than or equal to 20 ng/ml ICD Code: R97.20 - Elevated prostate specific antigen [PSA] (2) Acute urinary retention ICD Code: R33.8 - Other retention of urine (3) Acute renal failure (ARF) ICD Code: N17.9 - Acute kidney failure, unspecified (4) Hydronephrosis ICD Code: N13.30 - Unspecified hydronephrosis (5) Enlarged prostate ICD Code: N40.0 - Benign prostatic hyperplasia without lower urinary tract symptoms Status: Acute (6) Obstructive uropathy ICD Code: N13.9 - Obstructive and reflux uropathy, unspecified Status: Acute (7) Lymphadenopathy ICD Code: R59.1 - Generalized enlarged lymph nodes Status: Acute (8) Scrotal edema ICD Code: N50.89 - Other specified disorders of the male genital organs Status: Acute Assessment and Plan -Start Flomax 0.4 mg BID -continue bryant catheter minimum x 1 week. -PSA can be falsely elevated due to acute urinary retention; however, it is usually only elevated to 80-90 range in my experience. The fact that his PSA is 330 and has pelvic lymphadenectomy, he likely has Prostate Cancer. Agree with biopsy of Lymph Node. -Recommend Bone Scan. -Hematuria likely from traumatic bryant insertion, enlarged prostate and bladder distention. Irrigate as needed. -Penile edema dependent in nature. -D/W patient, Dr. Melendez. Edwin Reyes MD Dec 13, 2016 17:15
[2016-12-13] MEDS ORDERED: BICALUTAMIDE 50 MG TAB PO SCH (18:00)
[2016-12-13 20:00] VITALS: BP 182/91; PULSE 72; RESP 18; TEMP 98.5; O2SAT 94
[2016-12-13] MEDS: TAMSULOSIN HCL 0.4 MG CAP PO SCH (20:41)
[2016-12-13] MEDS ORDERED: TAMSULOSIN HCL 0.4 MG CAP PO SCH (21:00)
--- NOTE | 2016-12-13 22:54 | MB ---
cc: FRANKIE SINGH M.D., MONICA MD FYNES, EVAN M. MD DATE OF CONSULTATION: 12/13/2016 REASON FOR CONSULTATION: Consult requested by Dr. Guaman for evaluation of possible prostate cancer as well as abdominal and pelvic lymphadenopathy. HISTORY OF PRESENT ILLNESS This is a 61 year-old very pleasant white male. He is without any significant past medical history. He was in his usual status of health up until three weeks ago he came to the emergency room complaining of that he was unable to urinate. He was evaluated by ER physician, Dr. Russ. It was found out that the patient has an enlarged prostate. He has classic symptoms of urinary retention. He was given Flomax and was advised to see a urologist. Due to the lack of health insurance, he was unable to see any urologist. The patient states that with the Flomax he was feeling better. He was urinating but was not able to empty the bladder completely. He came back to the emergency room yesterday with swelling of the suprapubic area, penis, as well as scrotum and both lower legs. He had a CT scan of the abdomen and pelvis which showed retroperitoneal and bilateral external iliac chain lymphadenopathy consistent with metastatic adenopathy versus lymphoma. He also has moderate bilateral hydronephrosis. Large scrotum with diffuse edema and appearance of hydrocele. Nonspecific bowel gas pattern noted. Prostate was found to be enlarged. The urinary bladder is in the upper limit of normal in size. There is moderate diverticulosis noted. The patient had a blood test. The PSA came back high at 339. His creatinine is 1.3. GFR is 56. The patient had a Hong catheter placed and his creatinine yesterday was 1.5, today it is 1.3. It looks like the bladder outlet obstruction is improving since he had the Hong catheter placed. I have been asked to see the patient for further evaluation. The patient denies any bone pain. He denies any weight loss. His appetite is good. The rest of the review of systems is negative. PAST MEDICAL HISTORY: None. PAST SURGICAL HISTORY: Appendectomy. ALLERGIES: NONE. MEDICATIONS: Flomax prior to coming to the hospital. FAMILY HISTORY: Father from heart disease. Mother from diabetes mellitus complications. The patient had two brothers, one from pancreatic cancer. The patient has three sisters, one son, two daughters, all alive and well. SOCIAL HISTORY: The patient is single, smokes cigarettes one pack a day for many years, also drinks alcohol after work. He works to maintain apartment buildings. PHYSICAL EXAMINATION: A well-developed, well-nourished white male in no apparent distress. Vital signs: Temperature 98.6, heart rate is 80, blood pressure 176/91. HEENT: PERRLA, EOMI, anicteric. No oral lesions noted. Neck is supple. There is no cervical, supraclavicular or axillary lymphadenopathy noted. Lungs are clear. No wheezing, rhonchi or rales. Heart is regular rate and rhythm. Abdomen is soft, nontender. There is a suprapubic swelling noted, genital area, penile and scrotal swelling noted. Extremities: Bilateral pedal edema noted. Neurology: Awake, alert, oriented x3. Skin: No significant lesions noted. ASSESSMENT 1. Bladder outlet obstruction due to an enlarged prostate with PSA of 339. This is most likely consistent with prostate cancer until proven otherwise. 2. Retroperitoneal lymphadenopathy and external iliac lymphadenopathy. Most likely this is consistent with metastatic prostate cancer. However, lymphoma cannot be ruled out at this time. PLAN I have reviewed his available records and I had an extensive discussion with the patient regarding the possibility of prostate cancer. The patient is scheduled to have a CT-guided core needle biopsy of the lymph node by interventional radiologist tomorrow. Dr. Reyes urologist just saw the patient as well. I have discussed the case with him. We both recommend that the patient should have bone scan to evaluate for any bone metastasis. The patient will have lymph node biopsy tomorrow. If this shows that he has lymphoma as well, then will discuss the treatment for the lymphoma. However, if the lymph nodes are enlarged due to the prostate cancer then hormonal treatment is recommended at this time. I will start him on Casodex today which will be 50 mg daily. The patient will get Lupron therapy as an outpatient. Upon discharge please give the appointment for the patient to come to our oncology center for further treatment of prostate cancer. Dr. Reyes will discuss later on regarding any surgical option that he would need to relieve his bladder outlet obstruction. Further recommendations to follow based on his hospital stay. Thank you for asking my opinion. MD ESTHER Castro/CINDY /5:22 PM /10:09 PM OSMANY
[2016-12-14] VITALS (7 sets, daily range): BP systolic 141–180; BP diastolic 80–93; PULSE 61–73; RESP 15–19; TEMP 96.8–99.2; O2SAT 93–96
[2016-12-14] MEDS ORDERED: cloNIDine HCL 0.1 MG TAB PO ONE (01:15)
[2016-12-14] MEDS: SODIUM CHLOR 0.45% 1000 ML INJ 1,000 ML IV SCH (04:10)
[2016-12-14 06:56] LABS: CALCIUM 8.5 MG/DL (8.5-10.1)
[2016-12-14 06:57] LABS: BICARBONATE 27.9 MEQ/L (21.0-32.0)
[2016-12-14 07:00] LABS: CREATININE 1.3 MG/DL (0.60-1.30)
[2016-12-14] MEDS: SODIUM CHLORIDE 0.9% FLUSH 10 ML FLUSH IV FLUSH SCH ×2 (07:30→21:12)
[2016-12-14] MEDS: FOLIC ACID 1 MG TAB PO SCH (08:18)
[2016-12-14] MEDS: PANTOPRAZOLE SOD 20 MG DELAYED RELEASE TAB PO SCH (08:18)
[2016-12-14] MEDS: TAMSULOSIN HCL 0.4 MG CAP PO SCH ×2 (08:18→21:12)
[2016-12-14] MEDS: THIAMINE HCL 100 MG TAB PO SCH (08:18)
[2016-12-14] MEDS: MULTIVITAMINS/MINERALS THERAPEUTIC TAB PO SCH (08:18)
[2016-12-14] MEDS ORDERED: MIDAZOLAM HCL 2 MG/2 ML VIAL IV ONE (09:50)
[2016-12-14] MEDS ORDERED: POTASSIUM CHLORIDE 10 MEQ CONTROLLED RELEASE TAB PO ONE (10:15)
--- NOTE | 2016-12-14 10:24 | PD.RAD ---
Post CT Procedure Prog Note Pre Procedure Diagnosis: (1) Lymphadenopathy Post Procedure Diagnosis: (1) Lymphadenopathy Procedure Date: Dec 14, 2016 Supervising Radiologist: Mihai Mcbride Anesthesia: Conscious Sedation Plan of Activity Patient to Unit: Nursing Unit Patient Condition: Good See PACS Report for procedural detail/treatment Biopsy Imaging Guidance: CT Side: Left Biopsy Procedure: Lymph Node Specimen: Core Biopsy Mihai Mcbride MD Dec 14, 2016 10:24
[2016-12-14] MEDS ORDERED: LIDOCAINE HCL 1% 30 ML VIAL SQ ONE (11:54)
[2016-12-14] MEDS: amLODIPine BESYLATE 5 MG TAB PO SCH (13:15)
[2016-12-14] MEDS: CIPROFLOXACIN 400 MG PREMIX 200 ML IV SCH ×2 (13:15→23:25)
--- NOTE | 2016-12-14 13:40 | HHI.PR ---
Subjective Remarks Patient seen and evaluated in follow-up for L obstruction likely due to prostate cancer. Status post lymph node biopsy and bone scan. Still with gross hematuria and catheter. Blood pressures been slightly elevated and potassium is low. Patient feels well however. No new events. Consultation is appreciated. Care plan discussed with Lenny MARLOW Objective Vitals Vital Signs Date Time Temp Pulse Resp B/P (MAP) Pulse Ox O2 Delivery O2 Flow Rate FiO2 12/14/16 12:44 97.7 71 18 155/89 (111) 93 12/14/16 10:55 61 16 146/83 (104) 94 12/14/16 10:40 98.1 64 15 145/91 (109) 93 12/14/16 08:00 98.6 64 19 157/88 (111) 93 12/14/16 04:00 98.7 65 18 167/92 (117) 94 12/14/16 00:00 99.2 67 18 180/93 (122) 96 12/13/16 20:00 98.5 72 18 182/91 (121) 94 12/13/16 15:30 98.6 80 20 176/91 (119) 96 I/O 12/13/16 12/13/16 12/13/16 12/14/16 12/14/16 12/14/16 07:00 15:00 23:00 07:00 15:00 23:00 Intake Total 1680 ml 1440 ml 1062 ml Output Total 3100 ml 2800 ml 4300 ml 4000 ml Balance -1420 ml -1360 ml -3238 ml -4000 ml Intake Oral 1080 ml 1440 ml 240 ml IV Total 600 ml 822 ml Output Urine Total 3100 ml 2800 ml 4300 ml 4000 ml # Bowel Movements 0 0 0 Result Diagram: 12/13/16 0555 12/14/16 0607 Imaging Last Impressions Abdomen/Pelvis CT 12/12/16 0000 Signed Impressions: Service Date/Time: Monday, December 12, 2016 19:06 - CONCLUSION: 1. Retroperitoneal and bilateral external iliac chain adenopathy of concern for metastatic adenopathy versus lymphoma. 2. Moderate bilateral hydronephrosis. 3. Large scrotum with diffuse edema and appearance hydroceles. 4. Nonspecific bowel gas pattern which may represent an ileus. 5. Enlarged prostate gland. The urinary bladder is the upper limits of normal in size. 6. Moderate diverticulosis. Paramjit Burrell MD Objective Remarks Gross hematuria and urinary Hong GENERAL: This is a well-nourished, well-developed patient, in no apparent distress. CARDIOVASCULAR: Regular rate and rhythm without murmurs, gallops, or rubs. RESPIRATORY: Clear to auscultation. Breath sounds equal bilaterally. No wheezes , rales, or rhonchi. GASTROINTESTINAL: Abdomen soft, non-tender, nondistended. Normal active bowel sounds MUSCULOSKELETAL: Extremities without clubbing, cyanosis, or edema. NEURO: Alert & Oriented x4 to person, place, time, situation. Moves all ext x4 A/P Problem List: (1) Acute renal failure (ARF) ICD Code: N17.9 - Acute kidney failure, unspecified Plan: Improved after relief of obstruction (obstructed due to prostatic enlargement with likely malignancy) Continue catheter (2) Lymphadenopathy ICD Code: R59.1 - Generalized enlarged lymph nodes Status: Acute Plan: Likely secondary to prosthetic malignancy Follow-up bone scan and biopsy (3) Scrotal edema ICD Code: N50.89 - Other specified disorders of the male genital organs Status: Acute Plan: Likely dependent, we'll continue supportive care (4) Elevated blood pressure reading ICD Code: R03.0 - Elevated blood-pressure reading, without diagnosis of hypertension Plan: Clonidine overnight 1 Continue with Norvasc (5) Hypokalemia ICD Code: E87.6 - Hypokalemia Plan: Replace and follow trend, check magnesium Discharge Planning Likely home in a.m. with outpatient follow-up and with Lucy Hernandez MD Dec 14, 2016 13:40
--- NOTE | 2016-12-14 13:51 | RADRPT ---
EXAM DATE/TIME: 12/14/2016 10:00 [facility] COMPARISON: No previous studies available for comparison. INDICATIONS : Left retroperitoneal lymph node biopsy. SEDATION TIME: 30 minutes BIOPSY SITE: Left retroperitoneal lymph node MEDICATION(S): 1.) 2 mg midazolam (Versed) IV 2.) 100 mcg fentanyl (Sublimaze) IV DEVICE(S): 1.) 18 gauge Temno core biopsy needle 2.) 16 gauge Vela blunt needle MEDICAL HISTORY : Hypertension. Enlarged prostate. SURGICAL HISTORY : Appendectomy. ENCOUNTER: Initial ACUITY: 1 day PAIN SCORE: 0/10 LOCATION: Left retroperitoneal lymph node A total of four core specimen(s) were obtained and sent to the laboratory for pathologic evaluation. PROCEDURE: 1. CT guided lymph node biopsy. 2. Conscious sedation with continuous EKG and oximetry monitoring. 3. EKG and oximetry remained stable throughout the procedure. Prior to the procedure informed consent was obtained. Any appropriate prior imaging studies were rev iewed. Using automated exposure control and adjustment of the mA and/or kV according to patient size, radiat ion dose was kept as low as reasonably achievable to obtain optimal diagnostic quality images. DICOM format image data is available electronically for review and comparison. The site was prepped in a sterile fashion. Full sterile technique was used, including cap, mask, darwin rile gloves and gown and a large sterile sheet. Hand hygiene and 2% chlorhexidine and/or betadine/al cohol prep was utilized per protocol for cutaneous antisepsis. The skin and subcutaneous tissues wer e infiltrated with local anesthetic solution. With CT guidance the previously identified target was localized. Biopsy was performed using the presc ribed needle as above. Adequate hemostasis was obtained with compression at the puncture site. Follow-up CT scan reveals no hemorrhage. The patient tolerated the procedure well and there were no complications. The patient was returned to the Radiology Outpatient Unit in stable condition. CONCLUSION: Uncomplicated CT guided biopsy. Mihai Mcbride MD on December 14, 2016 at 13:47 Board Certified Radiologist. This report was verified electronically.
--- NOTE | 2016-12-14 13:59 | RADRPT ---
EXAM DATE/TIME: 12/14/2016 11:24 [facility] COMPARISON: No previous studies available for comparison. PRIOR BONE SCANS: No correlative bone scan available for comparison. INDICATIONS : Elevated prostate specific antigen. DOSE: 30 mCi Tc99m MDP IV MEDICAL HISTORY : None SURGICAL HISTORY : Appendectomy. ENCOUNTER: Initial ACUITY: 3 days PAIN SCALE: 0/10 LOCATION: TECHNIQUE: Three hours post intravenous administration of radiotracer, whole body bone scan imaging was performe d. FINDINGS: There are multiple areas of increased activity involving the axial skeleton including the T11 vertebr al body, skull, ribs, pelvis and pubic rami bilaterally characteristic of metastatic disease. There i s also increased activity involving the left femoral neck characteristic of metastatic disease. The k idneys and bladder appear normal. CONCLUSION: 1. Both both foci of metastatic disease throughout the axial skeleton. 2. There is also metastatic disease to the left femoral neck. Mihai Mcbride MD on December 14, 2016 at 13:55 Board Certified Radiologist. This report was verified electronically.
[2016-12-14] MEDS: BICALUTAMIDE 50 MG TAB PO SCH (17:15)
--- NOTE | 2016-12-14 17:48 | PD.ONC.PN ---
Subjective Subjective Remarks Mr. Mercer is sitting in bed in no distress. He is looking forward to having his catheter removed and to leaving the hospital. Objective Data Date Time Temp Pulse Resp B/P (MAP) Pulse Ox O2 Delivery O2 Flow Rate FiO2 12/14/16 12:44 97.7 71 18 155/89 (111) 93 12/14/16 10:55 61 16 146/83 (104) 94 12/14/16 10:40 98.1 64 15 145/91 (109) 93 12/14/16 08:00 98.6 64 19 157/88 (111) 93 12/14/16 04:00 98.7 65 18 167/92 (117) 94 12/14/16 00:00 99.2 67 18 180/93 (122) 96 12/13/16 20:00 98.5 72 18 182/91 (121) 94 12/14/16 12/14/16 12/14/16 07:00 15:00 23:00 Intake Total 1062 ml Output Total 4300 ml 4000 ml Balance -3238 ml -4000 ml Result Diagram: 12/13/16 0555 12/14/16 0607 Laboratory Results Laboratory Tests Test 12/14/16 06:07 Blood Urea Nitrogen 22 MG/DL Creatinine 1.30 MG/DL Random Glucose 86 MG/DL Calcium Level 8.5 MG/DL Sodium Level 141 MEQ/L Potassium Level 3.2 MEQ/L Chloride Level 104 MEQ/L Carbon Dioxide Level 27.9 MEQ/L Anion Gap 9 MEQ/L Estimat Glomerular Filtration Rate 56 ML/MIN Imaging Studies Last 24 hours Impressions Lymph Node Biopsy CT 12/14/16 0000 Signed Impressions: Service Date/Time: December 10:00 - CONCLUSION: Uncomplicated CT guided biopsy. Mihai Mcbride MD Administered Medications Medications (Trade) Dose Ordered Sig/Deo Route PRN Reason Start Time Stop Time Status Last Admin Dose Admin Sodium Chloride 1,000 ml @ 75 mls/hr [id number] IV 12/12/16 21:22 12/14/16 04:10 Pantoprazole Sodium (Protonix) 20 mg DAILY PO 12/13/16 09:00 12/14/16 08:18 Sodium Chloride (NS Flush) 2 ml BID IV FLUSH 12/13/16 09:00 12/13/16 20:41 Folic Acid (Folate) 1 mg DAILY PO 12/13/16 09:00 12/18/16 08:59 12/14/16 08:18 Thiamine HCl (Vitamin B1) 100 mg DAILY PO 12/13/16 09:00 12/14/16 08:18 Multivitamins/ Minerals Therapeutic (Theragran M Tab) 1 tab DAILY PO 12/13/16 09:00 12/18/16 08:59 12/14/16 08:18 Ciprofloxacin/ Dextrose 200 ml @ 200 mls/hr DAILY@0000,1200 IV 12/13/16 13:00 12/14/16 13:15 Tamsulosin HCl (Flomax) 0.4 mg Q12HR PO 12/13/16 21:00 12/14/16 08:18 Bicalutamide (Casodex) 50 mg DAILY@1800 PO 12/14/16 18:00 12/14/16 17:15 Amlodipine Besylate (Norvasc) 5 mg DAILY PO 12/14/16 10:30 12/14/16 13:15 Objective Remarks GENERAL: Well-nourished, well-developed patient. SKIN: Warm and dry. HEAD: Normocephalic. EYES: No scleral icterus. No injection or drainage. LYMPHATIC: No adenopathy. CARDIOVASCULAR: Regular rate and rhythm without murmurs. RESPIRATORY: Breath sounds equal bilaterally. No accessory muscle use. GASTROINTESTINAL: Abdomen soft, non-tender, nondistended. EXTREMITIES: No edema. MUSCULOSKELETAL: Adequate muscle tone. NEUROLOGICAL: No obvious focal deficit. Awake, alert, and oriented x3. PSYCHIATRIC: Appropriate mood and affect; insight and judgment normal. Assessment/Plan Assessment 1. Highly suspicious for metastatic prostate cancer: with elevated PSA to greater than 300, bone scan revealing foci of metastatic disease throughout the axial skeleton and metastatic disease to the left femur. Retroperitoneal and bilateral external iliac adenopathy. s/p lymph node biopsy with results pending. Suspect prostate cancer vs lymphoma. Continue bicalutamide. Further care including leuprolide and denosumab/zometa in the outpatient setting. 2. Obstructive uropathy: s/p placement of catheter. Management per urology. Darcie Portillo MD Dec 14, 2016 17:48
[2016-12-14] MEDS ORDERED: NICOTINE 14 MG/24 HR PATCH T-DERMAL PRN (19:00)
[2016-12-14] MEDS: LORazepam 1 MG TAB PO PRN (22:48)
[2016-12-15] VITALS: BP 167/87; PULSE 66; RESP 17; TEMP 97.8; O2SAT 95
[2016-12-15] MEDS: SODIUM CHLOR 0.45% 1000 ML INJ 1,000 ML IV SCH ×3 (00:30→13:53)
[2016-12-15 04:00] VITALS: BP 139/88; PULSE 70; RESP 20; TEMP 96.9; O2SAT 94
[2016-12-15] MEDS: amLODIPine BESYLATE 5 MG TAB PO SCH (07:51)
[2016-12-15] MEDS: THIAMINE HCL 100 MG TAB PO SCH (07:51)
[2016-12-15] MEDS: MULTIVITAMINS/MINERALS THERAPEUTIC TAB PO SCH (07:52)
[2016-12-15] MEDS: PANTOPRAZOLE SOD 20 MG DELAYED RELEASE TAB PO SCH (07:52)
[2016-12-15] MEDS: TAMSULOSIN HCL 0.4 MG CAP PO SCH ×2 (07:52→21:25)
[2016-12-15] MEDS: FOLIC ACID 1 MG TAB PO SCH (07:52)
[2016-12-15 08:00] VITALS: BP 173/91; PULSE 76; RESP 16; TEMP 99; O2SAT 93
[2016-12-15] MEDS ORDERED: POTASSIUM CHLORIDE 10 MEQ CONTROLLED RELEASE TAB PO ONE (08:15)
[2016-12-15] MEDS: REMOVE OLD PATCH T-DERMAL SCH (09:00)
[2016-12-15] MEDS: SODIUM CHLORIDE 0.9% FLUSH 10 ML FLUSH IV FLUSH SCH ×2 (09:00→21:26)
--- NOTE | 2016-12-15 11:01 | HHI.PR ---
Subjective Remarks Gross hematuria remains present without obstruction. Catheters placed. Patient complains of less penile pain today compared to previous. Biopsies are pending. Suspicion for prostate cancer with malignancy. Low potassium this morning. Objective Vital Signs Date Time Temp Pulse Resp B/P (MAP) Pulse Ox O2 Delivery O2 Flow Rate FiO2 12/15/16 08:00 99.0 76 16 173/91 (118) 93 Automatic Cuff 12/15/16 04:00 96.9 70 20 139/88 (105) 94 12/15/16 00:00 97.8 66 17 167/87 (113) 95 12/14/16 20:00 96.8 73 18 141/80 (100) 96 12/14/16 12:44 97.7 71 18 155/89 (111) 93 I/O 12/14/16 12/14/16 12/14/16 12/15/16 12/15/16 12/15/16 07:00 15:00 23:00 07:00 15:00 23:00 Intake Total 1062 ml 480 ml 1600 ml Output Total 4300 ml 4000 ml 1725 ml 2650 ml 1020 ml Balance -3238 ml -4000 ml -1245 ml -1050 ml -1020 ml Intake Oral 240 ml 480 ml 800 ml IV Total 822 ml 800 ml Output Urine Total 4300 ml 4000 ml 1725 ml 2650 ml 1020 ml # Bowel Movements 0 1 0 Result Diagram: 12/13/16 0555 12/14/16 0607 Objective Remarks GENERAL: NAD, A&Ox3 HEAD: Normocephalic. NECK: Supple, trachea midline. No lymphadenopathy. EYES: No scleral icterus. No injection or drainage. CARDIOVASCULAR: Regular rate and rhythm without murmurs, gallops, or rubs. RESPIRATORY: Breath sounds equal bilaterally. No accessory muscle use. GASTROINTESTINAL: Abdomen soft, non-tender, nondistended. MUSCULOSKELETAL: No cyanosis, or edema. SKIN: Warm and dry. NEURO: No focal neurological deficitis. A/P Problem List: (1) Elevated PSA, greater than or equal to 20 ng/ml ICD Code: R97.20 - Elevated prostate specific antigen [PSA] (2) Acute urinary retention ICD Code: R33.8 - Other retention of urine (3) Elevated blood pressure reading ICD Code: R03.0 - Elevated blood-pressure reading, without diagnosis of hypertension Assessment and Plan Assessment and plan 61-year-old male admitted secondary to urinary retention with possible prostate cancer with metastasis as an etiology. Urinary retention Acute renal failure Improved with catheter placement Follow renal function Hematuria Follow for improvement Monitor for clot obstruction Follow CBC Suspected prostate cancer with metastasis Lymphadenopathy Scrotal edema Follow biopsy results Urology following Oncology following Hypertensive urgency May be related to alcohol withdrawal As needed clonidine Continue to treat withdrawal symptoms DVT prophylaxis SCDs given active bleeding Discharge Planning Patient may discharge with Hong, but hematuria burden remains too high to safely discharge at this time Jose Mars MD Dec 15, 2016 11:01
[2016-12-15 12:00] VITALS: BP 133/72; PULSE 78; RESP 16; TEMP 97.8; O2SAT 94
[2016-12-15] MEDS ORDERED: cloNIDine HCL 0.1 MG TAB PO PRN (12:00)
[2016-12-15] MEDS: CIPROFLOXACIN 400 MG PREMIX 200 ML IV SCH (13:53)
[2016-12-15] MEDS ORDERED: diphenhydrAMINE HCL 2%/ZINC ACETATE 0.1% CREAM 30 APPLIC/30 GM TUBE TOPICAL PRN (14:00)
[2016-12-15 16:00] VITALS: BP 139/79; PULSE 79; RESP 16; TEMP 97.9; O2SAT 97
[2016-12-15] MEDS: BICALUTAMIDE 50 MG TAB PO SCH (18:06)
--- NOTE | 2016-12-15 18:59 | PD.ONC.PN ---
Subjective Subjective Remarks Anxious about the bryant. Feels pressure less, able to move bowels, ambulating, drinking fluids. Objective Data Date Time Temp Pulse Resp B/P (MAP) Pulse Ox O2 Delivery O2 Flow Rate FiO2 12/15/16 16:00 97.9 79 16 139/79 (99) 97 12/15/16 12:00 97.8 78 16 133/72 (92) 94 12/15/16 08:00 99.0 76 16 173/91 (118) 93 Automatic Cuff 12/15/16 04:00 96.9 70 20 139/88 (105) 94 12/15/16 00:00 97.8 66 17 167/87 (113) 95 12/14/16 20:00 96.8 73 18 141/80 (100) 96 12/15/16 12/15/16 12/15/16 07:00 15:00 23:00 Intake Total 1600 ml 1680 ml Output Total 2650 ml 2145 ml 900 ml Balance -1050 ml -2145 ml 780 ml Result Diagram: 12/13/16 0555 12/14/16 0607 Administered Medications Medications (Trade) Dose Ordered Sig/Deo Route PRN Reason Start Time Stop Time Status Last Admin Dose Admin Sodium Chloride 1,000 ml @ 75 mls/hr [id number] IV 12/12/16 21:22 12/15/16 13:53 Pantoprazole Sodium (Protonix) 20 mg DAILY PO 12/13/16 09:00 12/15/16 07:52 Sodium Chloride (NS Flush) 2 ml BID IV FLUSH 12/13/16 09:00 12/15/16 09:00 Folic Acid (Folate) 1 mg DAILY PO 12/13/16 09:00 12/18/16 08:59 12/15/16 07:52 Thiamine HCl (Vitamin B1) 100 mg DAILY PO 12/13/16 09:00 12/15/16 07:51 Multivitamins/ Minerals Therapeutic (Theragran M Tab) 1 tab DAILY PO 12/13/16 09:00 12/18/16 08:59 12/15/16 07:52 Lorazepam (Ativan) 1 mg Q4H PRN PO CIWA 8 - 10 12/12/16 23:15 12/14/16 22:48 Ciprofloxacin/ Dextrose 200 ml @ 200 mls/hr DAILY@0000,1200 IV 12/13/16 13:00 12/15/16 13:53 Tamsulosin HCl (Flomax) 0.4 mg Q12HR PO 12/13/16 21:00 12/15/16 07:52 Bicalutamide (Casodex) 50 mg DAILY@1800 PO 12/14/16 18:00 12/15/16 18:06 Amlodipine Besylate (Norvasc) 5 mg DAILY PO 12/14/16 10:30 12/15/16 07:51 Miscellaneous Information 1 DAILY T-DERMAL 12/15/16 09:00 12/15/16 09:00 Objective Remarks GENERAL: Well-nourished, well-developed patient. SKIN: Warm and dry. HEAD: Normocephalic. EYES: No scleral icterus. No injection or drainage. LYMPHATIC: No adenopathy. CARDIOVASCULAR: Regular rate and rhythm without murmurs. RESPIRATORY: Breath sounds equal bilaterally. No accessory muscle use. GASTROINTESTINAL: Abdomen soft, non-tender, nondistended. EXTREMITIES: No edema. Bryant with hematuria. MUSCULOSKELETAL: Adequate muscle tone. NEUROLOGICAL: No obvious focal deficit. Awake, alert, and oriented x3. PSYCHIATRIC: Anxious. Assessment/Plan Problem List: (1) Elevated PSA, greater than or equal to 20 ng/ml ICD Codes: R97.20 - Elevated prostate specific antigen [PSA] Status: Acute Plan: Highly suspicious for metastatic prostate cancer: elevated PSA to greater than 300, bone scan revealing foci of metastatic disease throughout the axial skeleton and metastatic disease to the left femur. Retroperitoneal and bilateral external iliac adenopathy. s/p lymph node biopsy with results pending. Clinically responding to antiandrogen. Feels less pressure. Follow with Dr. Miranda as outpatient. (2) Obstructive uropathy ICD Codes: N13.9 - Obstructive and reflux uropathy, unspecified Status: Acute Plan: Bryant in place. 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 Hgb stable. Answered questions regarding need to alleviate obstruction. Understands and more comfortable with idea to continue w/ bryant. Will need fu w/ urology. Brigitte Steele MD Dec 15, 2016 18:58
[2016-12-15 21:08] VITALS: BP 150/88; PULSE 71; RESP 16; TEMP 97.6; O2SAT 97
[2016-12-15] MEDS: LORazepam 1 MG TAB PO PRN (22:24)
[2016-12-16 00:33] VITALS: BP 169/82; PULSE 74; RESP 16; TEMP 97.4; O2SAT 95
[2016-12-16] MEDS: CIPROFLOXACIN 400 MG PREMIX 200 ML IV SCH ×2 (03:03→12:20)
[2016-12-16] MEDS: SODIUM CHLOR 0.45% 1000 ML INJ 1,000 ML IV SCH (05:22)
[2016-12-16 07:41] LABS: HEMOGLOBIN 12.8 GM/DL (13.0-17.0); MEAN CELL VOLUME 94.6 FL (80.0-100.0); MEAN CORPUSCULAR HEMOGLOBIN 31.9 PG (27.0-34.0); MEAN CORPUSCULAR HGB CONC 33.7 % (32.0-36.0); MEAN PLATELET VOLUME 9.3 FL (7.0-11.0); PLATELET COUNT 242 TH/MM3 (150-450); RED BLOOD COUNT 4.02 MIL/MM3 (4.50-5.90); RED CELL DISTRIBUTION WIDTH 12.3 % (11.6-17.2); WHITE BLOOD COUNT 6.2 TH/MM3 (4.0-11.0)
[2016-12-16 07:55] LABS: CALCIUM 8.5 MG/DL (8.5-10.1)
[2016-12-16 07:56] LABS: BICARBONATE 26.3 MEQ/L (21.0-32.0); MAGNESIUM 2.2 MG/DL (1.5-2.5)
[2016-12-16 07:59] LABS: CREATININE 1.1 MG/DL (0.60-1.30)
[2016-12-16 08:00] VITALS: BP 140/89; PULSE 78; RESP 16; TEMP 97; O2SAT 97
[2016-12-16] MEDS ORDERED: POTASSIUM CHLORIDE 20 MEQ PWD PACKET PO ONE (09:00)
[2016-12-16] MEDS: REMOVE OLD PATCH T-DERMAL SCH (09:00)
[2016-12-16] MEDS: SODIUM CHLORIDE 0.9% FLUSH 10 ML FLUSH IV FLUSH SCH ×2 (09:00→21:19)
--- NOTE | 2016-12-16 09:14 | HHI.PR ---
Subjective Remarks He is improving. Not stable enough for discharge regarding hematuria. Low potassium today. Potassium replaced. Pathology pending. Objective Vital Signs Date Time Temp Pulse Resp B/P (MAP) Pulse Ox O2 Delivery O2 Flow Rate FiO2 12/16/16 04:06 12/16/16 00:33 97.4 74 16 169/82 (111) 95 12/15/16 21:08 97.6 71 16 150/88 (108) 97 12/15/16 16:00 97.9 79 16 139/79 (99) 97 12/15/16 12:00 97.8 78 16 133/72 (92) 94 I/O 12/15/16 12/15/16 12/15/16 12/16/16 12/16/16 12/16/16 07:00 15:00 23:00 07:00 15:00 23:00 Intake Total 1600 ml 1680 ml Output Total 2650 ml 2145 ml 900 ml 1000 ml 3000 ml Balance -1050 ml -2145 ml 780 ml -1000 ml -3000 ml Intake Oral 800 ml 1680 ml IV Total 800 ml Output Urine Total 2650 ml 2145 ml 900 ml 1000 ml 3000 ml # Bowel Movements 0 4 1 Result Diagram: 12/16/16 0703 12/16/16 0703 Objective Remarks GENERAL: NAD, A&Ox3 HEAD: Normocephalic. NECK: Supple, trachea midline. No lymphadenopathy. EYES: No scleral icterus. No injection or drainage. CARDIOVASCULAR: Regular rate and rhythm without murmurs, gallops, or rubs. RESPIRATORY: Breath sounds equal bilaterally. No accessory muscle use. GASTROINTESTINAL: Abdomen soft, non-tender, nondistended. MUSCULOSKELETAL: No cyanosis, or edema. SKIN: Warm and dry. NEURO: No focal neurological deficitis. A/P Problem List: (1) Elevated PSA, greater than or equal to 20 ng/ml ICD Code: R97.20 - Elevated prostate specific antigen [PSA] Status: Acute (2) Acute urinary retention ICD Code: R33.8 - Other retention of urine (3) Elevated blood pressure reading ICD Code: R03.0 - Elevated blood-pressure reading, without diagnosis of hypertension Assessment and Plan Assessment and plan 61-year-old male admitted secondary to urinary retention with possible prostate cancer with metastasis as an etiology. Labs reviewed. CBC shows stability of anemia despite bleeding. Continue to monitor hematuria, no discharge until hematuria improves. Urinary retention Acute renal failure Improved with catheter placement Follow renal function Hematuria Follow for improvement Monitor for clot obstruction Follow CBC Suspected prostate cancer with metastasis Lymphadenopathy Scrotal edema Follow biopsy results Urology following Oncology following Hypertensive urgency May be related to alcohol withdrawal As needed clonidine Continue to treat withdrawal symptoms DVT prophylaxis SCDs given active bleeding Discharge Planning Patient may discharge with Hong, but hematuria burden remains too high to safely discharge at this time Jose Mars MD Dec 16, 2016 09:14
[2016-12-16] MEDS: TAMSULOSIN HCL 0.4 MG CAP PO SCH ×2 (09:52→21:18)
[2016-12-16] MEDS: FOLIC ACID 1 MG TAB PO SCH (09:52)
[2016-12-16] MEDS: amLODIPine BESYLATE 5 MG TAB PO SCH (09:53)
[2016-12-16] MEDS: PANTOPRAZOLE SOD 20 MG DELAYED RELEASE TAB PO SCH (09:53)
[2016-12-16] MEDS: MULTIVITAMINS/MINERALS THERAPEUTIC TAB PO SCH (09:53)
[2016-12-16] MEDS: THIAMINE HCL 100 MG TAB PO SCH (09:53)
[2016-12-16 12:00] VITALS: BP 126/85; PULSE 77; RESP 14; TEMP 97.5; O2SAT 96
[2016-12-16 16:00] VITALS: BP 148/88; PULSE 79; RESP 16; TEMP 96.8; O2SAT 98
[2016-12-16] MEDS: BICALUTAMIDE 50 MG TAB PO SCH (18:20)
[2016-12-16] MEDS ORDERED: ALUMINUM/MAGNESIUM/SIMETH 30 ML CUP PO ONE (22:00)
[2016-12-16 22:39] VITALS: BP 161/84; PULSE 76; RESP 19; TEMP 97.6; O2SAT 98
[2016-12-17] MEDS: CIPROFLOXACIN 400 MG PREMIX 200 ML IV SCH ×3 (00:06→23:52)
[2016-12-17] MEDS ORDERED: ZOLPIDEM TARTRATE 5 MG TAB PO ONE (00:45)
[2016-12-17] MEDS ORDERED: FAMOTIDINE 20 MG TAB PO ONE (00:45)
[2016-12-17 01:25] VITALS: BP 143/82; PULSE 72; RESP 20; TEMP 97.8; O2SAT 97
[2016-12-17 08:00] VITALS: BP 118/75; PULSE 74; RESP 18; TEMP 97.8; O2SAT 97
[2016-12-17 08:31] LABS: HEMATOCRIT 38.7 % (39.0-51.0); HEMOGLOBIN 12.7 GM/DL (13.0-17.0); MEAN CELL VOLUME 95.4 FL (80.0-100.0); MEAN CORPUSCULAR HEMOGLOBIN 31.4 PG (27.0-34.0); MEAN CORPUSCULAR HGB CONC 32.9 % (32.0-36.0); MEAN PLATELET VOLUME 9.4 FL (7.0-11.0); PLATELET COUNT 282 TH/MM3 (150-450); RED BLOOD COUNT 4.05 MIL/MM3 (4.50-5.90); RED CELL DISTRIBUTION WIDTH 12.7 % (11.6-17.2); WHITE BLOOD COUNT 7.7 TH/MM3 (4.0-11.0)
[2016-12-17 08:37] LABS: CALCIUM 8.3 MG/DL (8.5-10.1)
[2016-12-17 08:38] LABS: BICARBONATE 25.3 MEQ/L (21.0-32.0)
[2016-12-17 08:41] LABS: CREATININE 1.2 MG/DL (0.60-1.30)
[2016-12-17] MEDS: REMOVE OLD PATCH T-DERMAL SCH (09:00)
[2016-12-17] MEDS: FOLIC ACID 1 MG TAB PO SCH (09:40)
[2016-12-17] MEDS: amLODIPine BESYLATE 5 MG TAB PO SCH (09:40)
[2016-12-17] MEDS: SODIUM CHLORIDE 0.9% FLUSH 10 ML FLUSH IV FLUSH SCH ×2 (09:40→20:13)
[2016-12-17] MEDS: TAMSULOSIN HCL 0.4 MG CAP PO SCH ×2 (09:40→20:13)
[2016-12-17] MEDS: MULTIVITAMINS/MINERALS THERAPEUTIC TAB PO SCH (09:41)
[2016-12-17] MEDS: THIAMINE HCL 100 MG TAB PO SCH (09:41)
[2016-12-17] MEDS: PANTOPRAZOLE SOD 20 MG DELAYED RELEASE TAB PO SCH (09:41)
--- NOTE | 2016-12-17 11:15 | HHI.PR ---
Subjective Remarks Hematuria with clots present in catheter remains. Patient's not stable enough for discharge. Pathology pending. Objective Vital Signs Date Time Temp Pulse Resp B/P (MAP) Pulse Ox O2 Delivery O2 Flow Rate FiO2 12/17/16 08:00 97.8 74 18 118/75 (89) 97 12/17/16 01:25 97.8 72 20 143/82 (102) 97 12/16/16 22:39 97.6 76 19 161/84 (109) 98 12/16/16 16:00 96.8 79 16 148/88 (108) 98 12/16/16 12:00 97.5 77 14 126/85 (99) 96 I/O 12/16/16 12/16/16 12/16/16 12/17/16 12/17/16 12/17/16 07:00 15:00 23:00 07:00 15:00 23:00 Intake Total 1908 ml 980 ml 815 ml Output Total 1000 ml 4000 ml 1451 ml 3200 ml Balance -1000 ml -2092 ml -471 ml -2385 ml Intake Oral 708 ml 980 ml 520 ml IV Total 1200 ml 295 ml Output Urine Total 1000 ml 4000 ml 1450 ml 3200 ml Stool Total 1 ml # Bowel Movements 1 Result Diagram: 12/17/1674312/17/16743 Objective Remarks GENERAL: NAD, A&Ox3 HEAD: Normocephalic. NECK: Supple, trachea midline. No lymphadenopathy. EYES: No scleral icterus. No injection or drainage. CARDIOVASCULAR: Regular rate and rhythm without murmurs, gallops, or rubs. RESPIRATORY: Breath sounds equal bilaterally. No accessory muscle use. GASTROINTESTINAL: Abdomen soft, non-tender, nondistended. MUSCULOSKELETAL: No cyanosis, or edema. SKIN: Warm and dry. NEURO: No focal neurological deficitis. A/P Problem List: (1) Elevated PSA, greater than or equal to 20 ng/ml ICD Code: R97.20 - Elevated prostate specific antigen [PSA] Status: Acute (2) Acute urinary retention ICD Code: R33.8 - Other retention of urine (3) Elevated blood pressure reading ICD Code: R03.0 - Elevated blood-pressure reading, without diagnosis of hypertension Assessment and Plan Assessment and plan 61-year-old male admitted secondary to urinary retention with possible prostate cancer with metastasis as an etiology. Labs reviewed. CBC shows stability of anemia despite bleeding. No changes compared to yesterday, blood clots are visualized and catheter tube. Continue to monitor hematuria, no discharge until hematuria improves. Monitor for pathology report. Urinary retention Acute renal failure Improved with catheter placement Follow renal function Hematuria Follow for improvement Monitor for clot obstruction Follow CBC Suspected prostate cancer with metastasis Lymphadenopathy Scrotal edema Follow biopsy results Urology following Oncology following Hypertensive urgency May be related to alcohol withdrawal As needed clonidine Continue to treat withdrawal symptoms DVT prophylaxis SCDs given active bleeding Discharge Planning Patient may discharge with Hong, but hematuria burden remains too high to safely discharge at this time Jose Mars MD Dec 17, 2016 11:15
[2016-12-17 12:00] VITALS: BP 115/62; PULSE 72; RESP 18; TEMP 97.7; O2SAT 97
[2016-12-17 15:51] VITALS: BP 148/76; PULSE 89; RESP 18; TEMP 99.3; O2SAT 99
[2016-12-17] MEDS: BICALUTAMIDE 50 MG TAB PO SCH (17:36)
[2016-12-17 21:40] VITALS: BP 138/78; PULSE 82; RESP 20; TEMP 97.9; O2SAT 99
[2016-12-18] VITALS: BP 137/79; PULSE 76; RESP 20; TEMP 98.8; O2SAT 95
[2016-12-18 06:20] LABS: HEMATOCRIT 36.3 % (39.0-51.0); HEMOGLOBIN 12.2 GM/DL (13.0-17.0); MEAN CELL VOLUME 96.3 FL (80.0-100.0); MEAN CORPUSCULAR HEMOGLOBIN 32.4 PG (27.0-34.0); MEAN CORPUSCULAR HGB CONC 33.7 % (32.0-36.0); MEAN PLATELET VOLUME 8.9 FL (7.0-11.0); PLATELET COUNT 266 TH/MM3 (150-450); RED BLOOD COUNT 3.77 MIL/MM3 (4.50-5.90); RED CELL DISTRIBUTION WIDTH 12.7 % (11.6-17.2); WHITE BLOOD COUNT 9.2 TH/MM3 (4.0-11.0)
[2016-12-18 06:33] LABS: CALCIUM 8.7 MG/DL (8.5-10.1)
[2016-12-18 06:34] LABS: BICARBONATE 26.2 MEQ/L (21.0-32.0)
[2016-12-18 06:37] LABS: CREATININE 1.1 MG/DL (0.60-1.30)
[2016-12-18] MEDS: SODIUM CHLORIDE 0.9% FLUSH 10 ML FLUSH IV FLUSH SCH ×2 (07:45→20:41)
[2016-12-18 08:00] VITALS: BP 137/74; PULSE 78; RESP 18; TEMP 98.2; O2SAT 98
[2016-12-18] MEDS: PANTOPRAZOLE SOD 20 MG DELAYED RELEASE TAB PO SCH (08:10)
[2016-12-18] MEDS: amLODIPine BESYLATE 5 MG TAB PO SCH (08:11)
[2016-12-18] MEDS: TAMSULOSIN HCL 0.4 MG CAP PO SCH ×2 (08:11→20:42)
[2016-12-18] MEDS: REMOVE OLD PATCH T-DERMAL SCH (08:11)
[2016-12-18] MEDS: THIAMINE HCL 100 MG TAB PO SCH (08:11)
[2016-12-18 12:00] VITALS: BP 141/75; PULSE 76; RESP 17; TEMP 97.9; O2SAT 96
[2016-12-18] MEDS: CIPROFLOXACIN 400 MG PREMIX 200 ML IV SCH (13:21)
[2016-12-18 16:00] VITALS: BP 132/66; PULSE 84; RESP 19; TEMP 98; O2SAT 96
--- NOTE | 2016-12-18 16:04 | HHI.PR ---
Subjective Remarks Dark, minimally translucent, hematuria remains, with mild clot burden. No urinary obstruction in the presence of clots. Pathology shows prostatic adenocarcinoma. Objective Vital Signs Date Time Temp Pulse Resp B/P (MAP) Pulse Ox O2 Delivery O2 Flow Rate FiO2 12/18/16 12:00 97.9 76 17 141/75 (97) 96 12/18/16 08:00 98.2 78 18 137/74 (95) 98 12/18/16 00:00 98.8 76 20 137/79 (98) 95 12/17/16 21:40 97.9 82 20 138/78 (98) 99 I/O 12/17/16 12/17/16 12/17/16 12/18/16 12/18/16 12/18/16 07:00 15:00 23:00 07:00 15:00 23:00 Intake Total 815 ml 1640 ml 420 ml Output Total 3200 ml 2000 ml 750 ml 3200 ml 3200 ml Balance -2385 ml -360 ml -750 ml -2780 ml -3200 ml Intake Oral 520 ml 1440 ml 420 ml IV Total 295 ml 200 ml Output Urine Total 3200 ml 2000 ml 750 ml 3200 ml 3200 ml Result Diagram: 12/18/1645 12/18/16544 Objective Remarks GENERAL: NAD, A&Ox3 HEAD: Normocephalic. NECK: Supple, trachea midline. No lymphadenopathy. EYES: No scleral icterus. No injection or drainage. CARDIOVASCULAR: Regular rate and rhythm without murmurs, gallops, or rubs. RESPIRATORY: Breath sounds equal bilaterally. No accessory muscle use. GASTROINTESTINAL: Abdomen soft, non-tender, nondistended. MUSCULOSKELETAL: No cyanosis, or edema. SKIN: Warm and dry. NEURO: No focal neurological deficitis. A/P Problem List: (1) Elevated PSA, greater than or equal to 20 ng/ml ICD Code: R97.20 - Elevated prostate specific antigen [PSA] Status: Acute (2) Acute urinary retention ICD Code: R33.8 - Other retention of urine (3) Elevated blood pressure reading ICD Code: R03.0 - Elevated blood-pressure reading, without diagnosis of hypertension Assessment and Plan Assessment and plan 61-year-old male admitted secondary to urinary retention with possible prostate cancer with metastasis as an etiology. Labs reviewed. CBC shows mildly progressive anemia despite bleeding. No significant changes compared to yesterday, small burden of blood clots are visualized and catheter tube. Continue to monitor hematuria, no discharge until hematuria improves. Pathology reports shows Prostatic adenocarcinoma. Urinary retention Acute renal failure Improved with catheter placement Follow renal function Hematuria Follow for improvement Monitor for clot obstruction Follow CBC Prostatic adenocarcinoma Lymphadenopathy Scrotal edema Follow biopsy results Urology following Oncology following Continue Leuprolide and Denosumab/Zomata Hypertensive urgency May be related to alcohol withdrawal As needed clonidine Continue to treat withdrawal symptoms DVT prophylaxis SCDs given active bleeding Discharge Planning Patient may discharge with Hong, but hematuria burden remains too high to safely discharge at this time Jose Mars MD Dec 18, 2016 16:04
[2016-12-18] MEDS: BICALUTAMIDE 50 MG TAB PO SCH (17:45)
[2016-12-18 20:00] VITALS: BP 141/79; PULSE 98; RESP 20; TEMP 99.6; O2SAT 98
[2016-12-19] VITALS: BP 133/80; PULSE 73; RESP 20; TEMP 98.8; O2SAT 95
[2016-12-19] MEDS: CIPROFLOXACIN 400 MG PREMIX 200 ML IV SCH (00:22)
[2016-12-19] MEDS ORDERED: KETOROLAC TROMETHAMINE 30 MG/ML (IVP) VIAL IV PUSH ONE (01:00)
[2016-12-19 04:00] VITALS: BP 134/86; PULSE 71; RESP 20; TEMP 97.4; O2SAT 99
[2016-12-19 08:00] VITALS: BP 104/73; PULSE 75; RESP 18; TEMP 97.2; O2SAT 99
[2016-12-19] MEDS: THIAMINE HCL 100 MG TAB PO SCH (08:22)
[2016-12-19] MEDS: TAMSULOSIN HCL 0.4 MG CAP PO SCH ×2 (08:22→20:46)
[2016-12-19] MEDS: PANTOPRAZOLE SOD 20 MG DELAYED RELEASE TAB PO SCH (08:22)
[2016-12-19] MEDS: REMOVE OLD PATCH T-DERMAL SCH (08:23)
[2016-12-19] MEDS: amLODIPine BESYLATE 5 MG TAB PO SCH (08:23)
[2016-12-19] MEDS: SODIUM CHLORIDE 0.9% FLUSH 10 ML FLUSH IV FLUSH SCH ×2 (08:24→20:46)
[2016-12-19 12:00] VITALS: BP 121/70; PULSE 75; RESP 18; TEMP 97.6; O2SAT 97
[2016-12-19 16:00] VITALS: BP 142/75; PULSE 72; RESP 18; TEMP 97.6; O2SAT 97
--- NOTE | 2016-12-19 17:13 | HHI.PR ---
Subjective Remarks No deterioration since last night per nursing except for the fact that the patient still has gross hematuria. Patient denies any pain. Says he feels okay , no fevers or chills. Seen feels like he go home. Objective Vital Signs Date Time Temp Pulse Resp B/P (MAP) Pulse Ox O2 Delivery O2 Flow Rate FiO2 12/19/16 12:00 97.6 75 18 121/70 (87) 97 12/19/16 08:00 97.2 75 18 104/73 (83) 99 12/19/16 04:00 97.4 71 20 134/86 (102) 99 12/19/16 00:00 98.8 73 20 133/80 (97) 95 12/18/16 20:00 99.6 98 20 141/79 (99) 98 Manual Cuff/Auscultation I/O 12/18/16 12/18/16 12/18/16 12/19/16 12/19/16 12/19/16 07:00 15:00 23:00 07:00 15:00 23:00 Intake Total 420 ml 1220 ml 260 ml Output Total 3200 ml 3200 ml 1925 ml 600 ml 800 ml Balance -2780 ml -3200 ml -705 ml -340 ml -800 ml Intake Oral 420 ml 1020 ml 60 ml IV Total 200 ml 200 ml Output Urine Total 3200 ml 3200 ml 1925 ml 600 ml 800 ml Bladder Scan Volume Amount 138 ml # Bowel Movements 0 Result Diagram: 12/18/16 0545 12/18/16 0545 Objective Remarks Catheter in place with gross hematuria evident within catheter and Hong bag No suprapubic tenderness or distention Patient is awake and alert, no acute distress A/P Assessment and Plan Assessment and plan 61-year-old male admitted secondary to urinary retention with possible prostate cancer with metastasis as an etiology. Labs reviewed. CBC shows mildly progressive anemia despite bleeding. No significant changes compared to yesterday, small burden of blood clots are visualized and catheter tube. Continue to monitor hematuria, no discharge until hematuria improves. Pathology reports shows Prostatic adenocarcinoma. Urinary retention Acute renal failure Improved with catheter placement Follow renal function Touched base with urology today, plan to discontinue Hong in a.m w/ voiding trial. Hematuria Still persisting, Monitor for clot obstruction - bladder irrigation prn hematuria Follow CBC Prostatic adenocarcinoma Lymphadenopathy Scrotal edema bx results showing adenocarcinoma Urology following Oncology following Continue Leuprolide and Denosumab/Zomata Hypertensive urgency May be related to alcohol withdrawal As needed clonidine Continue to treat withdrawal symptoms DVT prophylaxis SCDs given active bleeding Discharge Planning Patient may discharge with Hong, but hematuria burden remains too high to safely discharge at this time Galen Abdullahi MD Dec 19, 2016 17:13
[2016-12-19] MEDS: BICALUTAMIDE 50 MG TAB PO SCH (17:47)
[2016-12-19 20:00] VITALS: BP 131/79; PULSE 74; RESP 20; TEMP 97.3; O2SAT 97
[2016-12-20] VITALS: BP 160/86; PULSE 68; RESP 20; TEMP 97.4; O2SAT 97
[2016-12-20 08:00] VITALS: BP 130/65; PULSE 75; RESP 16; TEMP 96.9; O2SAT 98
[2016-12-20] MEDS: REMOVE OLD PATCH T-DERMAL SCH (09:00)
[2016-12-20] MEDS: TAMSULOSIN HCL 0.4 MG CAP PO SCH (10:00)
[2016-12-20] MEDS: THIAMINE HCL 100 MG TAB PO SCH (10:00)
[2016-12-20] MEDS: PANTOPRAZOLE SOD 20 MG DELAYED RELEASE TAB PO SCH (10:00)
[2016-12-20] MEDS: amLODIPine BESYLATE 5 MG TAB PO SCH (10:00)
[2016-12-20] MEDS: SODIUM CHLORIDE 0.9% FLUSH 10 ML FLUSH IV FLUSH SCH (10:01)
[2016-12-20 12:00] VITALS: BP 147/72; PULSE 73; RESP 16; TEMP 97; O2SAT 100
[2016-12-20] MEDS ORDERED: AMLO5 PO (12:00)
[2016-12-20] MEDS ORDERED: TAMS5CAP PO (12:00)
[2016-12-20] MEDS ORDERED: BICA50TA PO (12:00)
[2016-12-20] MEDS ORDERED: THIA100 PO (12:00)
--- NOTE | 2016-12-20 12:02 | HHI.DCPOC ---
Discharge Care Plan Diagnosis: (1) Prostate cancer (2) Acute urinary retention (3) Lymphadenopathy (4) Obstructive uropathy Goals to Promote Your Health * To prevent worsening of your condition and complications * To maintain your health at the optimal level Directions to Meet Your Goals Take your medications as prescribed Follow your dietary instruction Follow activity as directed Keep your appointments as scheduled Take your immunizations and boosters as scheduled If your symptoms worsen call your PCP, if no PCP go to Urgent Care Center or Emergency Room Smoking is Dangerous to Your Health. Avoid second hand smoke Call the 24-hour hour crisis hotline for domestic abuse at Galen Abdullahi MD Dec 20, 2016 12:02
--- NOTE | 2016-12-20 12:02 | HHI.DCPOC ---
Discharge Care Plan Diagnosis: (1) Prostate cancer (2) Acute urinary retention (3) Lymphadenopathy (4) Obstructive uropathy Goals to Promote Your Health * To prevent worsening of your condition and complications * To maintain your health at the optimal level Directions to Meet Your Goals Take your medications as prescribed Follow your dietary instruction Follow activity as directed Keep your appointments as scheduled Take your immunizations and boosters as scheduled If your symptoms worsen call your PCP, if no PCP go to Urgent Care Center or Emergency Room Smoking is Dangerous to Your Health. Avoid second hand smoke Call the 24-hour hour crisis hotline for domestic abuse at Galen Abdullahi MD Dec 20, 2016 12:02
--- NOTE | 2016-12-20 12:02 | HHI.DCPOC ---
Discharge Care Plan Diagnosis: (1) Prostate cancer (2) Acute urinary retention (3) Lymphadenopathy (4) Obstructive uropathy Goals to Promote Your Health * To prevent worsening of your condition and complications * To maintain your health at the optimal level Directions to Meet Your Goals Take your medications as prescribed Follow your dietary instruction Follow activity as directed Keep your appointments as scheduled Take your immunizations and boosters as scheduled If your symptoms worsen call your PCP, if no PCP go to Urgent Care Center or Emergency Room Smoking is Dangerous to Your Health. Avoid second hand smoke Call the 24-hour hour crisis hotline for domestic abuse at Galen Abdullahi MD Dec 20, 2016 12:02
--- NOTE | 2016-12-20 14:54 | HHI.DS ---
Discharge Summary Admission Date Dec 13, 2016 at 10:31 Discharge Date: Dec 20, 2016 Admitting Diagnosis obstructive uropathy, enlarged prostate, lymphadenopathy (1) Acute renal failure (ARF) ICD Code: N17.9 - Acute kidney failure, unspecified (2) Lymphadenopathy ICD Code: R59.1 - Generalized enlarged lymph nodes Status: Acute (3) Scrotal edema ICD Code: N50.89 - Other specified disorders of the male genital organs Status: Acute (4) Elevated blood pressure reading ICD Code: R03.0 - Elevated blood-pressure reading, without diagnosis of hypertension (5) Hypokalemia ICD Code: E87.6 - Hypokalemia (6) Prostate cancer ICD Code: C61 - Malignant neoplasm of prostate Procedures Hong insertion CT-guided biopsy of left retroperitoneal lymph node Brief History - From Admission This patient is a very pleasant 61-year-old gentleman with minimal past medical history is come to the hospital with 3 weeks of decreased urine output proceeded by 4 months of urinary frequency. He reports over the last 2 weeks his bladder has not emptied fully. He finally came to the emergency room with increased scrotal and penile swelling and discomfort. A catheter was placed in the emergency room and 1.5 L of urine was obtained. Patient has since developed hematuria. He did have CT abdomen pelvis done which did show some prostatic enlargement with pelvic lymphadenopathy concerning for malignancy. Reports no history of malignancy personally but his brother had some sort of cancer that he at age 47. He notes no fevers or chills. He has not lost any weight and he denies any joint or back pain. Patient been admitted to the hospital for further evaluation and treatment CBC/BMP: 12/18/16 0545 12/18/16 0545 Significant Findings Laboratory Tests Test 12/18/16 05:45 Red Blood Count 3.77 MIL/MM3 (4.50-5.90) Hemoglobin 12.2 GM/DL (13.0-17.0) Hematocrit 36.3 % (39.0-51.0) Blood Urea Nitrogen 21 MG/DL (7-18) Estimat Glomerular Filtration Rate 68 ML/MIN (>89) PE at Discharge Patient with Hong in place, showing gross hematuria and tube with no obvious clots No abdominal tenderness Patient is awake and alert, no acute distress Hospital Course Patient was admitted after undergoing Hong insertion which showed gross hematuria. Urology was consulted as well as oncology - he was started on alpha kizzy as well as bicalutamide. Since CT scan findings showed lesion suggestive of possible metastatic lymph nodes, patient underwent a bone scan which did show metastases to axial skeleton including left femoral neck. Patient underwent biopsy of retroperitoneal lymph node which was positive for prostate adenocarcinoma. Patient remained afebrile through the latter half of his hospitalization and his urine cultures remained negative. His clinical status returned to baseline apart from his gross hematuria which remained persistent. His hemoglobin was holding steady with no acute drastic drops. Patient was cleared to discharge from urology standpoint with close outpatient follow-up with them as well as oncology. Patient will likely undergo voiding trial in urology clinic. Patient has met maximal benefit from hospitalization and is clinically stable for discharge. He was counseled to follow up with urology as well as his PCP to monitor for any continued drop in hemoglobin. Pt Condition on Discharge: Stable Discharge Disposition: Discharge Home Discharge Time: > 30 minutes Discharge Instructions DIET: Follow Instructions for: As Tolerated, No Restrictions Activities you can perform: Weight Bearing as Wood Follow up Referrals: Oncology - 1 Week with Danielito Miranda MD New Medications: Amlodipine (Norvasc) 5 Mg Tab 5 MG PO DAILY for blood pressure, #30 TAB Bicalutamide (Bicalutamide) 50 Mg Tab 50 MG PO DAILY@1800 for cancer, #30 TAB Hazardous agent; use appropriate precautions for handling & disposal. Tamsulosin (Flomax) 0.4 Mg Cap 0.4 MG PO Q12HR for urinary retention, #60 CAP Thiamine HCl (Gnp Vitamin B-1) 100 Mg Tab 100 MG PO DAILY for nutrition, #30 TAB Continued Medications: Omeprazole Magnesium (Prilosec) 20 Mg Tab 1 CAP PO DAILY for Reflux Discontinued Medications: Tamsulosin (Flomax) 0.4 Mg Cap 0.4 MG PO HS for Manage Prostate Problems for 30 Days, #30 CAP 0 Refills Galen Abdullahi MD Dec 20, 2016 14:54
--- NOTE | 2016-12-20 16:00 | PD.ONC.PN ---
Subjective Subjective Remarks feels better Less hematuria. Urine is now pink color. Objective Data Date Time Temp Pulse Resp B/P (MAP) Pulse Ox O2 Delivery O2 Flow Rate FiO2 12/20/16 12:00 97.0 73 16 147/72 (97) 100 12/20/16 08:00 96.9 75 16 130/65 (86) 98 12/20/16 00:00 97.4 68 20 160/86 (110) 97 12/19/16 20:00 97.3 74 20 131/79 (96) 97 12/19/16 16:00 97.6 72 18 142/75 (97) 97 12/20/16 12/20/16 12/20/16 07:00 15:00 23:00 Intake Total 480 ml 480 ml Output Total 2600 ml 1600 ml 700 ml Balance -2120 ml -1120 ml -700 ml Result Diagram: 12/18/16 0545 12/18/16 0545 Administered Medications Medications (Trade) Dose Ordered Sig/Deo Route PRN Reason Start Time Stop Time Status Last Admin Dose Admin Pantoprazole Sodium (Protonix) 20 mg DAILY PO 12/13/16 09:00 12/20/16 10:00 Sodium Chloride (NS Flush) 2 ml UNSCH PRN IV FLUSH FLUSH AFTER USING IV ACCESS 12/12/16 23:15 12/17/16 23:52 Sodium Chloride (NS Flush) 2 ml BID IV FLUSH 12/13/16 09:00 12/20/16 10:01 Thiamine HCl (Vitamin B1) 100 mg DAILY PO 12/13/16 09:00 12/20/16 10:00 Lorazepam (Ativan) 1 mg Q4H PRN PO CIWA 8 - 10 12/12/16 23:15 12/15/16 22:24 Tamsulosin HCl (Flomax) 0.4 mg Q12HR PO 12/13/16 21:00 12/20/16 10:00 Bicalutamide (Casodex) 50 mg DAILY@1800 PO 12/14/16 18:00 12/19/16 17:47 Amlodipine Besylate (Norvasc) 5 mg DAILY PO 12/14/16 10:30 12/20/16 10:00 Miscellaneous Information 1 DAILY T-DERMAL 12/15/16 09:00 12/19/16 08:23 Objective Remarks GENERAL: Well-nourished, well-developed patient. SKIN: Warm and dry. HEAD: Normocephalic. EYES: No scleral icterus. No injection or drainage. NECK: Supple, trachea midline. No JVD or lymphadenopathy. LYMPHATIC: No adenopathy. CARDIOVASCULAR: Regular rate and rhythm without murmurs. RESPIRATORY: Breath sounds equal bilaterally. No accessory muscle use. GASTROINTESTINAL: Abdomen soft, non-tender, nondistended. EXTREMITIES: No cyanosis, or edema. MUSCULOSKELETAL: Adequate muscle tone. NEUROLOGICAL: No obvious focal deficit. Awake, alert, and oriented x3. PSYCHIATRIC: Appropriate mood and affect; insight and judgment normal. Assessment/Plan Problem List: (1) Elevated PSA, greater than or equal to 20 ng/ml ICD Codes: R97.20 - Elevated prostate specific antigen [PSA] Status: Acute Plan: Highly suspicious for metastatic prostate cancer: elevated PSA to greater than 300, bone scan revealing foci of metastatic disease throughout the axial skeleton and metastatic disease to the left femur. Retroperitoneal and bilateral external iliac adenopathy. s/p lymph node biopsy with results pending. Clinically responding to antiandrogen. Feels less pressure. Follow with Dr. Miranda as outpatient. (2) Obstructive uropathy ICD Codes: N13.9 - Obstructive and reflux uropathy, unspecified Status: Acute Plan: Bryant in place. Hematuria- subjectively typesetting machine tender without clots. Hgb stable. Answered questions regarding need to alleviate obstruction. Understands and more comfortable with idea to continue w/ bryant. Will need fu w/ urology. Attending Statement LN bx = mets prostate ca, Bone scan = + mets. D/W pt. Continue casodex ok to d/c home. Pt to call office to make follow up appt. He needs to be place on lupron also. Danielito Miranda MD Dec 20, 2016 16:00
== END 2016-12-20 16:25 | disposition home or self-care (01) | DRG 723 ==
LOC: PHED 16:25 → PHEDA 21:12 → PH3A 22:10 → OBSVTOIN 12-13 10:31
PROVIDERS: ADMIT Hospitalist; ATTEND Hospitalist
PROC: 0T9B70Z Drainage of Bladder with Drainage Device, Via Natural or Artificial Opening (ICD-10-PCS; principal; 2016-12-12)
PROC: 07DC3ZX Extraction of Pelvis Lymphatic, Percutaneous Approach, Diagnostic (ICD-10-PCS; 2016-12-14)
DX: C61 Malignant neoplasm of prostate (principal); C77.2 Secondary and unspecified malignant neoplasm of intra-abdominal lymph nodes; C79.51 Secondary malignant neoplasm of bone; N17.9 Acute kidney failure, unspecified; N13.30 Unspecified hydronephrosis; N13.8 Other obstructive and reflux uropathy; F10.239 Alcohol dependence with withdrawal, unspecified; F17.210 Nicotine dependence, cigarettes, uncomplicated; N50.89 Other specified disorders of the male genital organs; N48.89 Other specified disorders of penis; K57.90 Diverticulosis of intestine, part unspecified, without perforation or abscess without bleeding; R31.0 Gross hematuria; Z80.9 Family history of malignant neoplasm, unspecified; Z83.3 Family history of diabetes mellitus; Z82.49 Family history of ischemic heart disease and other diseases of the circulatory system; E87.6 Hypokalemia; N32.89 Other specified disorders of bladder; N43.3 Hydrocele, unspecified; N32.0 Bladder-neck obstruction; R03.0 Elevated blood-pressure reading, without diagnosis of hypertension; D64.9 Anemia, unspecified; I16.0 Hypertensive urgency
CPT/HCPCS: 38505; 51702; 74176; 77012; 78306; 80048; 80053; 81001; 82948; 83690; 83735; 83880; 84153; 85025; 85027; 85610; 85730; 88305; 88307; 88341; 88342; 96374; A9503; G0378; G8987-GP; G8988-GP; J0744; J1885; J2250; J2270; J3010

== ENCOUNTER 2016-12-28 11:11 | Emergency (ER) | payer SELFPAY ==
[~2016-12-28] VITALS: Ht 177.8 cm; Wt 73.0 kg
[~2016-12-28 11:11] MED LIST changes: +AMLO5 PO; +BICA50TA PO; +THIA100 PO
[2016-12-28 11:21] VITALS: BP 148/86; PULSE 87; RESP 16; TEMP 98.2; O2SAT 98
--- NOTE | 2016-12-28 13:01 | PD ---
HPI Chief Complaint: Complaint Time Seen by Provider: 12:03 Travel History International Travel<30 days: No Contact w/Intl Traveler<30days: No Traveled to known affect area: No History of Present Illness HPI This patient has an indwelling Hong catheter due to obstruction from prostate cancer. This morning and is catheter and it has not drained a drop of urine since that time. He is feeling okay but knows catheter is not working. No fever or injury. Symptoms severity is mild PFSH Past Medical History Hx Anticoagulant Therapy: No Cancer: No Cardiovascular Problems: Yes Diabetes: No Diminished Hearing: No Genitourinary: Yes (ENLARGED PROSTATE) Hypertension: Yes (not treated) Musculoskeletal: No Neurologic: No Psychiatric: No Reproductive: No Respiratory: No ?: Not Past Surgical History Appendectomy: Yes Other Surgery: Yes Social History Alcohol Use: Yes (daily) Tobacco Use: Yes (1 ppd) Substance Use: Yes (ETOH) Allergies-Medications (Allergen,Severity, Reaction): Coded Allergies: No Known Allergies (Unverified Allergy, Unknown, 12/28/16) Reported Meds & Prescriptions Reported Meds & Active Scripts Active Gnp Vitamin B-1 (Thiamine HCl) 100 Mg Tab 100 Mg PO DAILY Norvasc (Amlodipine Besylate) 5 Mg Tab 5 Mg PO DAILY Flomax (Tamsulosin HCl) 0.4 Mg Cap 0.4 Mg PO Q12HR Bicalutamide 50 Mg Tab 50 Mg PO DAILY@1800 Hazardous agent; use appropriate precautions for handling & disposal. Reported Prilosec (Omeprazole Magnesium) 20 Mg Tab 1 Cap PO DAILY Review of Systems General / Constitutional: No: Fever HENT: No: Headaches Cardiovascular: No: Chest Pain or Discomfort Respiratory: No: Cough Physical Exam Narrative GASTROINTESTINAL: Abdomen soft, non-tender, nondistended. Positive bowel sounds. No hepato-splenomegaly, or palpable masses. No guarding. : Circumcised penis with catheter in position attached to a leg bag. There is no urine in the leg bag Psych: Normal mood and affect. Normal insight and judgment. Data Data Last Documented VS Vital Signs Date Time Temp Pulse Resp B/P (MAP) Pulse Ox O2 Delivery O2 Flow Rate FiO2 12/28/16 11:21 98.2 87 16 148/86 (106) 98 MDM Medical Decision Making Medical Screen Exam Complete: Yes Emergency Medical Condition: Yes Medical Record Reviewed: Yes Differential Diagnosis Catheter obstruction, blood clot clogging the tubing, malposition of catheter Narrative Course I have reviewed the patient's electronic medical record. Patient recently hospitalized and diagnosed with metastatic prostate cancer we flushed out the catheter and that instantly put out 600 cc of yellow urine. No blood clots in it. It's clearly working now. follow-up with urology and oncology Diagnosis Primary Impression: Malfunction of Hong catheter Qualified Codes: T83.011A - Breakdown (mechanical) of indwelling urethral catheter, initial encounter Additional Instructions: Follow-up with oncologist and urologist Med/Other Pt SpecificInfo: Other Disposition: 01 DISCHARGE HOME Condition: Stable Guillermo Mendiola MD Dec 28, 2016 13:01
== END 2016-12-28 13:12 | disposition home or self-care (01) ==
LOC: PHED 11:11
DX: T83.011A Breakdown (mechanical) of indwelling urethral catheter, initial encounter (principal); I10 Essential (primary) hypertension
CPT/HCPCS: 99284

== ENCOUNTER 2016-12-29 00:06 | Emergency (ER) | payer SELFPAY ==
[~2016-12-29] VITALS: Ht 177.8 cm; Wt 79.4 kg
[2016-12-29 00:09] VITALS: BP 121/64; PULSE 94; RESP 18; TEMP 97.6; O2SAT 96
--- NOTE | 2016-12-29 00:57 | PD ---
HPI Chief Complaint: Complaint Time Seen by Provider: 00:56 Travel History International Travel<30 days: No Contact w/Intl Traveler<30days: No Traveled to known affect area: No History of Present Illness HPI 61-year-old male returns to the emergency department for recurrent occlusion of the urinary catheter. Patient was just seen earlier in the day for the same complaint after recent hospitalization for urinary retention. Patient has had decreased urine output. Patient denies fever chills nausea vomiting or hematuria. Patient states past no clots. Patient is not taking any antibiotics. Patient is otherwise in good health and is being followed closely by urology and oncology. [facility] Past Medical History Narrative Medical Prostate cancer obstructive uropathy; nursing notes reviewed Hx Anticoagulant Therapy: No Cancer: No Cardiovascular Problems: Yes Diabetes: No Diminished Hearing: No Genitourinary: Yes (ENLARGED PROSTATE) Hypertension: Yes (not treated) Musculoskeletal: No Neurologic: No Psychiatric: No Reproductive: No Respiratory: No Tetanus Vaccination: Unknown Influenza Vaccination: No Past Surgical History Appendectomy: Yes Other Surgery: Yes Social History Alcohol Use: Yes (daily) Tobacco Use: Yes (1 ppd) Substance Use: Yes (ETOH) Allergies-Medications (Allergen,Severity, Reaction): Coded Allergies: No Known Allergies (Unverified Allergy, Unknown, 12/29/16) Reported Meds & Prescriptions Reported Meds & Active Scripts Active Gnp Vitamin B-1 (Thiamine HCl) 100 Mg Tab 100 Mg PO DAILY Norvasc (Amlodipine Besylate) 5 Mg Tab 5 Mg PO DAILY Flomax (Tamsulosin HCl) 0.4 Mg Cap 0.4 Mg PO Q12HR Bicalutamide 50 Mg Tab 50 Mg PO DAILY@1800 Hazardous agent; use appropriate precautions for handling & disposal. Reported Prilosec (Omeprazole Magnesium) 20 Mg Tab 1 Cap PO DAILY Review of Systems Except as stated in HPI: all other systems reviewed are Neg Physical Exam Narrative GENERAL: Well-developed well-nourished male in no acute distress no respiratory distress SKIN: Warm and dry. HEAD: Normocephalic. EYES: No scleral icterus. No injection or drainage. NECK: Supple, trachea midline. No JVD or lymphadenopathy. CARDIOVASCULAR: Regular rate and rhythm without murmurs, gallops, or rubs. RESPIRATORY: Breath sounds equal bilaterally. No accessory muscle use. GASTROINTESTINAL: Abdomen soft, non-tender, nondistended. : Circumcised male no induration or lesions of the urethral meatus urinary catheter in place: Urine and urinary catheter collection bag MUSCULOSKELETAL: No cyanosis, or edema. BACK: Nontender without obvious deformity. No CVA tenderness. Data Data Last Documented VS Vital Signs Date Time Temp Pulse Resp B/P (MAP) Pulse Ox O2 Delivery O2 Flow Rate FiO2 12/29/16 00:09 97.6 94 18 121/64 (83) 96 MDM Medical Decision Making Medical Screen Exam Complete: Yes Emergency Medical Condition: Yes Medical Record Reviewed: Yes Differential Diagnosis Urinary catheter malfunction, occlusion, UTI Narrative Course Urinary catheter irrigated with quick return of clear yellow urine Patient is stable for close follow-up with his urologist recommend patient call his urologist times one day and increase fluid hydration; patient afebrile Diagnosis Primary Impression: Urinary catheter complication Qualified Codes: T83.9XXD - Unspecified complication of genitourinary prosthetic device, implant and graft, subsequent encounter Referrals: Urologist 1 day Patient Instructions: General Instructions Additional Instructions: Increase fluid hydration Follow-up with your urologist call office in a.m. Return to the emergency department concerns or change in condition Monitor temperature for hours with thermometer take acetaminophen/Tylenol as needed for fever 100.4F or greater Disposition: 01 DISCHARGE HOME Condition: Stable Laura Lowe MD Dec 29, 2016 00:57
[2016-12-29 01:16] VITALS: BP 110/60
== END 2016-12-29 01:26 | disposition home or self-care (01) ==
LOC: PHED 00:06
DX: T83.9XXD Unspecified complication of genitourinary prosthetic device, implant and graft, subsequent encounter (principal)
CPT/HCPCS: 99283

== ENCOUNTER 2017-02-17 09:24 | Emergency (ER) | payer MEDICAID, OTHER ==
[~2017-02-17] VITALS: Ht 177.8 cm; Wt 81.7 kg
[2017-02-17 09:47] VITALS: BP 155/87; PULSE 73; RESP 16; TEMP 98.6; O2SAT 98
[2017-02-17] MEDS ORDERED: TAMS5CAP PO (10:07)
[2017-02-17] MEDS ORDERED: AMLO5 PO (10:07)
[2017-02-17] MEDS ORDERED: BICA50TA PO (10:07)
--- NOTE | 2017-02-17 10:08 | PD ---
HPI Chief Complaint: Medication Refill Request Time Seen by Provider: 09:52 Travel History International Travel<30 days: No Contact w/Intl Traveler<30days: No Traveled to known affect area: No History of Present Illness HPI Patient is a 61-year-old male presenting to emergency Department for medication refill. Patient states that he will be out of his amlodipine, Casodex, tamsulosin by tomorrow. He reports that his oncologist's office told him he needed to find a primary doctor in order to have these medications refilled. He has been unable to obtain an appointment with the primary doctor until this point. He has no physical complaints today. Patient is concerned because he needs to be on these medications and is unable to have them refilled. He has a follow-up appointment scheduled with Dr. Miranda on February 26. He has a history of stage IV prostate cancer, hypertension, BPH. PFSH Past Medical History Hx Anticoagulant Therapy: No Cancer: No Cardiovascular Problems: Yes (htn on meds) Diabetes: No Diminished Hearing: No Genitourinary: Yes (ENLARGED PROSTATE) Hypertension: Yes (not treated) Musculoskeletal: No Neurologic: No Psychiatric: No Reproductive: No Respiratory: No Past Surgical History Appendectomy: Yes Other Surgery: Yes Social History Alcohol Use: Yes (daily) Tobacco Use: Yes (1 ppd) Substance Use: Yes (ETOH) Allergies-Medications (Allergen,Severity, Reaction): Coded Allergies: No Known Allergies (Unverified Allergy, Unknown, 02/17/17) Reported Meds & Prescriptions Reported Meds & Active Scripts Active Gnp Vitamin B-1 (Thiamine HCl) 100 Mg Tab 100 Mg PO DAILY Norvasc (Amlodipine Besylate) 5 Mg Tab 5 Mg PO DAILY Flomax (Tamsulosin HCl) 0.4 Mg Cap 0.4 Mg PO Q12HR Bicalutamide 50 Mg Tab 50 Mg PO DAILY@1800 Hazardous agent; use appropriate precautions for handling & disposal. Reported Prilosec (Omeprazole Magnesium) 20 Mg Tab 1 Cap PO DAILY Review of Systems Except as stated in HPI: all other systems reviewed are Neg Physical Exam Narrative GENERAL: Well developed, well-nourished, well-appearing male. Resting in no acute distress. SKIN: Warm and dry. HEAD: Normocephalic. EYES: No scleral icterus. No injection or drainage. NECK: Supple, trachea midline. No JVD or lymphadenopathy. CARDIOVASCULAR: Regular rate and rhythm without murmurs, gallops, or rubs. RESPIRATORY: Breath sounds equal bilaterally. No accessory muscle use. GASTROINTESTINAL: Abdomen soft, non-tender, nondistended. MUSCULOSKELETAL: No cyanosis, or edema. BACK: Nontender without obvious deformity. No CVA tenderness. Data Data Last Documented VS Vital Signs Date Time Temp Pulse Resp B/P (MAP) Pulse Ox O2 Delivery O2 Flow Rate FiO2 02/17/17 09:47 98.6 73 16 155/87 (109) 98 [facility] Medical Decision Making Medical Screen Exam Complete: Yes Emergency Medical Condition: Yes Interpretation(s) Vital Signs Date Time Temp Pulse Resp B/P (MAP) Pulse Ox O2 Delivery O2 Flow Rate FiO2 02/17/17 09:47 98.6 73 16 155/87 (109) 98 Differential Diagnosis Hypertension versus medication refill versus other Narrative Course Patient 61-year-old male presenting for medication refill. Patient is well- appearing, his vital signs are stable. He has no physical complaints at this time. He is concerned that he will run out of his medications. At this time patient's medications will be refilled. He was encouraged to discuss having his oncologist refilled the Casodex as this is an oncology drug. He was further encouraged to obtain an appointment with his primary care provider for ongoing evaluation and management of his hypertension. He was encouraged to return to emergency department for any new or worsening symptoms. He verbalized understanding of these instructions. Patient is stable for discharge. Medical records reviewed, note from his oncologist confirms that he is on these medications. Additionally patient. Labs were reviewed from December 2016. Diagnosis Primary Impression: Encounter for medication refill Referrals: Danielito Miranda MD [facility] Primary Care Physician Patient Instructions: General Instructions Additional Instructions: Schedule an appointment with your primary doctor or at the [facility] for routine healthcare. Follow up with your oncologist as scheduled. Return to the emergency department for any new or worsening symptoms Med/Other Pt SpecificInfo: Prescription(s) given Scripts Amlodipine (Norvasc) 5 Mg Tab 5 MG PO DAILY for blood pressure, #30 TAB Prov: Akosua Ahuja 02/17/17 Tamsulosin (Flomax) 0.4 Mg Cap 0.4 MG PO DAILY for urinary retention, #30 CAP Prov: Akosau Ahuja 02/17/17 Bicalutamide (Bicalutamide) 50 Mg Tab 50 MG PO DAILY@1800 for cancer, #30 TAB Hazardous agent; use appropriate precautions for handling & disposal. Prov: Akosua Ahuja 02/17/17 Disposition: 01 DISCHARGE HOME Condition: Stable Akosua Ahuja Feb 17, 2017 10:08
== END 2017-02-17 10:21 | disposition home or self-care (01) ==
LOC: PHEFT 09:24
DX: Z76.0 Encounter for issue of repeat prescription (principal); I10 Essential (primary) hypertension; N40.0 Benign prostatic hyperplasia without lower urinary tract symptoms; F17.200 Nicotine dependence, unspecified, uncomplicated; Z85.46 Personal history of malignant neoplasm of prostate
CPT/HCPCS: 99284

== ENCOUNTER → 2017-06-26 | Outpatient (CLI) | payer MEDICAID, OTHER ==
[2017-06-26 09:25] LABS: HEMATOCRIT 40.9 % (39.0-51.0); HEMOGLOBIN 13.6 GM/DL (13.0-17.0); MEAN CELL VOLUME 91.6 FL (80.0-100.0); MEAN CORPUSCULAR HEMOGLOBIN 30.4 PG (27.0-34.0); MEAN CORPUSCULAR HGB CONC 33.2 % (32.0-36.0); MEAN PLATELET VOLUME 8.3 FL (7.0-11.0); PLATELET COUNT 262 TH/MM3 (150-450); RED BLOOD COUNT 4.47 MIL/MM3 (4.50-5.90); WHITE BLOOD COUNT 5.5 TH/MM3 (4.0-11.0)
[2017-06-26 10:28] LABS: BLOOD UREA NITROGEN 8 MG/DL (7-18); CREATININE 0.93 MG/DL (0.60-1.30); GLOMERULAR FILTRATION RATE 82 ML/MIN (>89)
[2017-06-26 10:29] LABS: BICARBONATE 23.2 MEQ/L (21.0-32.0); CALCIUM 8.5 MG/DL (8.5-10.1); CHLORIDE 105 MEQ/L (98-107); GLUCOSE,FASTING 108 MG/DL (74-99); SODIUM (NA) 138 MEQ/L (136-145)
[2017-06-26 10:30] LABS: CHOLESTEROL 172 MG/DL (120-200); CHOLESTEROL/ HDL RATIO 2.61 RATIO; HDL CHOLESTEROL 65.9 MG/DL (40.0-60.0); LDL CHOLESTEROL 91 MG/DL (0-99); TRIGLYCERIDES 74 MG/DL (42-150)
[2017-06-26 16:12] LABS: HEMOGLOBIN A1C 5.7 % (4.3-6.0)
== END ==
LOC: CLAB 08:39
DX: I10 Essential (primary) hypertension (principal)
CPT/HCPCS: 36415; 80048; 80061; 83036; 85027